=== PATIENT | male | born 1930 | race Caucasian/White ===

== ENCOUNTER 2018-03-01 18:25 | Inpatient (IN) | payer MEDICARE ==
[2018-03-01 22:02] LABS: Troponin I Less than 0.010 ng/mL (< 0.028)
[2018-03-01 23:10] VITALS: BMI 30.2
--- NOTE | 2018-03-01 23:19 | CON ---
DATE OF CONSULTATION: 03/01/2018 HISTORY OF PRESENT ILLNESS: Mr. Johnson is an 87-year-old man who presented to the emergency [facility] via transfer from [facility] Emergency Department after CT scan of the brain revealed a right cerebral convexity, subdural hematoma that appears to be subacute in nature and has heterogen ous signal. He does not take any blood thinners. He initially went to the emergency department if h e has significant right hip and lower extremity pain looks to be in an L4 fashion, but he describes a n intermittent numbness over the last 8 days that has more poly dermatomal than anything else. His s on corroborates the story, the likely causation of his subdural is a fall apparently over the last 8 days, since being intermittent numbness began, he has had 5 or 6 separate falls likely one of which, where he struck his head in the bathroom, falling while trying to get up off the toilet. PHYSICAL EXAMINATION: HEENT: His head is atraumatic, normocephalic. Pupils are equal, round, and reactive to light. NEUROLOGIC: Cranial nerves are all intact. His speech is clear and coherent. EXTREMITIES: Upper and lower extremity motor exam is normal. He no longer has any paresthesia in th e right lower extremity nor does he in any other extremity, though none of others have given him any problem over the course of his numbness and pain. From a neurosurgical standpoint, this could represent a surgical situation. I do not think that his right leg has anything to do with the hemorrhage, given its laterality being contralateral. I discus sed with them that because he has a nonfocal neurologic examination and overall appears to be doing w ell and the fact that this is a subacute bleed. This likely does not need represent situation that b ecomes operative. Thorough understanding of this and we are elected to proceed on the surgery anyway . Our recommendation would be to admit to the hospitalist service on the stroke unit where we can pe rform q.2 hour neuro checks, keep his head off bed elevated, watch his systolic pressures to keep und er 160. Tomorrow, I would like to have him meet with MD and evaluated by the physical therapy and oc cupational therapy teams for possible inpatient rehabilitation admission. We will also consult case management for this purpose. We will need to hold any blood thinning medications including NSAIDs. We will repeat a CT scan in the morning around 0500. I discussed with the patient and family at beds [place], they are expressed understanding and I will see them in the morning.
[2018-03-02 01:29] LABS: Troponin I Less than 0.010 ng/mL (< 0.028)
[2018-03-02] MEDS ORDERED: Nitroglycerin 0.4 MG TAB (25 Tab Bottle) PO PRN (02:10)
[2018-03-02] MEDS ORDERED: Calcium Carbonate 500 MG ChewTAB PO PRN (02:10)
[2018-03-02] MEDS ORDERED: Ondansetron HCl/PF 4 MG/2 ML Vial IVP PRN (02:10)
[2018-03-02] MEDS ORDERED: Ondansetron ODT 4 MG TAB PO PRN (02:10)
[2018-03-02] MEDS ORDERED: Acetaminophen 325 MG TAB PO PRN (02:10)
[2018-03-02] MEDS ORDERED: Bisacodyl 10 MG SUPP PR PRN (02:10)
[2018-03-02] MEDS ORDERED: Senokot 8.6 MG TAB PO PRN (02:10)
--- NOTE | 2018-03-02 02:10 | PDOC.EVN ---
Event Note - Event Note Event Note: Patient seen and examined on 03/01/18. No Antiplatelet due to SDH
[2018-03-02] MEDS ORDERED: Sodium Chloride 0.9% 1,000 ML IV SCH (02:15)
[2018-03-02] MEDS ORDERED: hydrALAZINE 20 MG/ML VIAL SLOW IVP PRN (02:34)
--- NOTE | 2018-03-02 03:02 | HP ---
DATE OF ADMISSION: 03/01/2018 PRIMARY CARE PHYSICIAN: Darell Mendez M.D. CHIEF COMPLAINT: Right lower extremity weakness. HISTORY OF PRESENT ILLNESS: Patient is an 87-year-old male with coronary artery disease, hypertensio n, and hyperlipidemia who presented to the emergency room at [facility] with above compl aints. The patient currently lives at home with his son who is at the bedside. Last month, he was found to have right lower extremity weakness. A CT scan of the brain done as outpatient was negative for acut e findings except for chronic small vessel disease. Carotid Doppler was negative. Echocardiogram sh owed left ventricular ejection fraction of 55% to 60% with severe mitral regurgitation and mild tricu spid regurgitation. His aspirin dose was increased from 81 to 325 mg daily. Home health care was a rranged. The patient had an unwitnessed fall 2 days ago. It is unclear if he had significant injuries. The [facility] noted his right lower extremity more weaker than his baseline. The [facility] recommended the patient to go to the emergency room for evaluation. The patient was seen at [facility]. PAST MEDICAL HISTORY: 1. Coronary artery disease. 2. Hypertension. 3. Hyperlipidemia. 4. Degenerative joint disease. 5. Rheumatoid arthritis. 6. History of myocardial infarction. 7. Ischemic cardiomyopathy. PAST SURGICAL HISTORY: 1. Colonoscopy in 1995. 2. EGD and colonoscopy in 1998. ALLERGIES: Patient is allergic PENICILLIN, SULFA, ZOCOR that causes nausea and CELEBREX that causes rash. He is also unable to tolerate LISINOPRIL, HYDROCHLOROTHIAZIDE. CURRENT HOME MEDICATIONS: Per [facility], aspirin 325 mg daily, carvedilol 25 mg twice a day, pravasta tin 20 mg at bedtime, tramadol as needed, levothyroxine 50 mcg daily, sublingual nitroglycerin patch 0.2 mcg daily, vitamin D3 daily. SOCIAL HISTORY: Patient currently lives at home. He is . The son, Skinny at the bedside is th e DPOA. He is FULL CODE. No current use of smoking, alcohol or drug use. He currently has home hea lthcare. He ambulates with the help of a walker. FAMILY HISTORY: Father of [place]. Mother with stroke. Heart disease runs in his family. REVIEW OF SYSTEMS: The following complete review of systems was negative, unless otherwise mentioned in the HPI or below: Constitutional: Weight loss or gain, ability to conduct usual activities. Skin: Rash, itching. Eyes: Double vision, pain. ENT/Mouth: Nose bleeding, neck stiffness, pain, tenderness. Cardiovascular: Palpitations, dyspnea on exertion, orthopnea. Respiratory: Shortness of breath, wheezing, cough, hemoptysis, fever or night sweats. Gastrointestinal: Poor appetite, abdominal pain, heartburn, nausea, vomiting, constipation, or diarr hea. Genitourinary: Urgency, frequency, dysuria, nocturia. Musculoskeletal: Pain, swelling. Neurologic/Psychiatric: Anxiety, depression. Allergy/Immunologic: Skin rash, bleeding tendency. PHYSICAL EXAMINATION: VITAL SIGNS: The patient was afebrile with respiration 18, pulse rate of 58, blood pressure 141/68 w ith O2 saturation 96% on room air. GENERAL: An 87-year-old male in no apparent distress. HEENT: Head atraumatic, normocephalic. Sclerae are anicteric. Moist mucous membranes. No oral les ion. NECK: Supple, no JVD appreciated. No carotid bruit. LUNGS: Clear to auscultation bilaterally, no wheezing, rales or rhonchi. HEART: S1, S2 present. Regular rate and rhythm, 3/6 systolic murmur over the mitral area. No heav es or pulsation. ABDOMEN: Soft, nontender, bowel sounds present. EXTREMITIES: No edema or calf tenderness. NEUROLOGIC: Grossly nonfocal except for 4/5 strength in the right lower extremity. Cranial nerves I I-XII normal on examination. Sensation to touch was normal bilaterally. PSYCHIATRIC: Patient is alert, awake, oriented x3. SKIN: Warm and dry. LYMPH NODES: No palpable lymph nodes in the neck. PERIPHERAL VASCULAR: Radial pulses palpable bilaterally. MUSCULOSKELETAL: No joint swelling or tenderness. LABORATORY FINDINGS: 1. CBC showed WBC 5.3 with hemoglobin 13.2, hematocrit 41.9, platelet of 95. PT, INR, PTT normal ra nge. Chemistries showed sodium 141, potassium 4.3, chloride 109, bicarbonate 23, BUN 24, creatinine 1.22. 2. CT scan of the brain at [place] by my review was consistent with moderate size right subdural esdras rashaad. 3. Pelvic and hip x-rays were negative for acute fractures or dislocation. EKG by my review showed sinus bradycardia with nonspecific intraventricular block. He had some bigem inies on the tele monitor. IMPRESSION: 1. Suspected acute/subacute accident. 2. New subdural hematoma, probably secondary to fall. 3. Suspected cardiogenic syncope. 4. Chronic kidney disease stage 2 with mild worsening of creatinine. 5. Hypothyroidism. 6. Hypertension. 7. Hyperlipidemia. 8. Coronary artery disease. 9. Degenerative joint disease. 10. Severe mitral regurgitation. 11. Chronic thrombocytopenia. 12. Obesity with a BMI at 30.2. PLAN: The patient will be monitored in the stroke unit. MRI of the brain will be obtained. We will also consult Cardiology for suspected cardiogenic syncope. We will continue current home medication s including carvedilol with holding parameters. Physical therapy, occupational therapy. Neurosurger y has already evaluated the patient. A repeat CT scan of the brain will be obtained. We will hold aspirin. Fall precautions. We will continue neuro checks. We will keep the systolic b lood pressure under 160. Plan of care was discussed with the patient and the family at the bedside. They stated understanding . The patient will require 2 to 3 days for stabilization.
[2018-03-02 03:54] LABS: Albumin 3.2 g/dL (3.4-4.8); Anion Gap 8 mmol/L (10-20); BUN (Urea Nitrogen) 29 mg/dL (8.4-25.7); Calc. Creatinine Clearance 52 mL/min (70-130); Calcium 8.7 mg/dL (7.8-10.44); Carbon Dioxide 27 mmol/L (23-31); Cardiac Risk 4.8 (Less than 4.5); Chloride 110 mmol/L (98-107); Cholesterol 173 mg/dl (< 200 Desired); Estimated GFR-MDRD 55; Glucose 100 mg/dL (83-110); HDL Cholesterol 36 mg/dL (>60 Neg Risk); LDL Cholesterol, Calculated 119 mg/dL; Magnesium 2.1 mg/dL (1.6-2.6); Phosphorus 3.1 mg/dL (2.3-4.7); Potassium 4.1 mmol/L (3.5-5.1); Sodium 141 mmol/L (136-145); Triglycerides 90 mg/dL (Less than 150)
[2018-03-02 03:58] LABS: Troponin I Less than 0.010 ng/mL (< 0.028)
[2018-03-02] MEDS: traMADol HCl 50 MG TAB PO SCH ×2 (05:34→12:38)
[2018-03-02] MEDS: Levothyroxine Sodium 50 MCG TAB PO SCH (05:34)
[2018-03-02] MEDS ORDERED: Carvedilol 6.25 MG TAB PO SCH (08:00)
[2018-03-02] MEDS: Docusate 100 MG CAP PO SCH ×2 (08:41→21:54)
[2018-03-02] MEDS: Famotidine 20 MG TAB PO SCH ×2 (08:42→21:54)
--- NOTE | 2018-03-02 11:17 | CT ---
PRELIMINARY REPORT/[facility]/EMERGENTY AFTER-HOURS PROCEDURE Addendum created by Shamir Zimmerman MD on 03/02/2018 4:41 AM Central Time ([place] & [place]) Findings discussed with Yadira CALLAHAN RN at time of interpretation. Initial Report created on 03/02/2018 4:35 AM Central Time ([place] & [place]) CT Head Without Intravenous Contrast CLINICAL HISTORY: 87 years old, male; Signs and symptoms and condition or disease; Other: Subacute subdural hematoma; W eakness, extremity; Right; Patient HX: Follow up subacute subdural hematoma TECHNIQUE: Axial computed tomography images of the head/brain without intravenous contrast. COMPARISON: No relevant prior studies available. 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 No significant white matter disease. No acute hemorrhage. Midline shift: No midline shift. Ventricles: Unremarkable. No ventriculomegaly. Bones/joints: Unremarkable. No acute fracture. Soft tissues: Unremarkable. Sinuses: Unremarkable as visualized. No acute sinusitis. Mastoid air cells: Unremarkable as visualized. No mastoid effusion. Other findings: Generalized volume loss. 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 Thank you for allowing us to participate in the care of your patient. Dictated and Authenticated by: Shamir Zimmerman MD 03/02/2018 4:35 AM Central Time ([place] & [place]) FINAL REPORT CT HEAD NONCONTRAST PERFORMED ON EMERGENCY BASIS: Date: 03/02/18 Time: 0424 hours HISTORY: Subdural hematoma. Follow-up. COMPARISON: 03/01/18. FINDINGS: Findings agree with the preliminary report by [facility]. The right hypodense subdural fluid collection is unchanged in appearance from the previous exam. No new abnormalities are demonstrated. POS: SJ
--- NOTE | 2018-03-02 12:24 | MRI ---
MRI BRAIN NONCONTRAST: DATE: 03/02/18 TIME: 1039 HOURS HISTORY: 87-year-old male with acute stroke and acute right subdural hematoma. COMPARISON: No prior MRIs. FINDINGS: There is a right frontotemporoparietal subdural fluid collection which is mildly hyperintense relativ e to johnson matter on FLAIR, intermediate in signal intensity between that of brain parenchyma and CSF on T1 WI, and is T2 hyperintense, similar to CSF. At the mid level of the lateral ventricles, the fro ntal component of the subdural hematoma measures approximately 0.9 cm in transverse thickness. It cau ses mild mass effect upon the right cerebral hemisphere, but there is accommodation due to the diffus e chronic brain parenchymal volume loss. There is no midline shift. Ventricles are normal in size and configuration. There is a small focus of magnetic susceptibility blooming artifact in the right fron lior lobe parenchyma consistent with a tiny focus of remote hemorrhage, a few millimeters in size. No acute intra-axial hemorrhage. There is a sagittally oriented strip of T2 hyperintense signal, which corresponds to a region of low attenuation seen on prior brain CT of 02/11/18, consistent with small old white matter infarction in the left centrum semiovale. However, this area currently has restricted diffusion. This sagittally or iented strip of restricted diffusion follows the left paramedian centrum semiovale, then extends into the left lateral genu of corpus callosum abutting the frontal horn of the left lateral ventricle, co nsistent with an acute or subacute infarction. IMPRESSION: 1. Small to moderate size right supratentorial subdural hematoma, probably subacute, with mild mass effect upon the right cerebral hemisphere. 2. Acute or subacute infarction in branch territory of left anterior cerebral artery. CODE TFernandez Nichols POS: SEVERIANO
--- NOTE | 2018-03-02 12:43 | PRG ---
DATE OF SERVICE: 03/02/2018 SUBJECTIVE: Mr. Johnson was admitted last night for right lower extremity intermittent weakness, right cerebral convexity subdural hematoma of subacute nature, as well as possible TIA versus stroke. Thi s morning, he was comfortable. He denies any new complaints. His right lower extremity strength to me seems stable. His son in the room feels like maybe it is a little bit worse and was last night in the ER, but we will let physical therapy and occupational therapy work with him today to determine s ome more thorough assessment. Rehab is probably the best course of action here, although the patient is very anxious to get home. We will continue to follow.
--- NOTE | 2018-03-02 13:21 | PDOC.PN ---
- Subjective Encounter Start Date: 03/02/18 Encounter Start Time: 07:00 Pt seen for followup re: CVA. Reports RUE weakness. Denies chest pain, shortness of breath, fevers or chills. - Objective Resuscitation Status: Resuscitation Status FULL:Full Resuscitation MAR Reviewed: Yes Vital Signs & Weight: Vital Signs (12 hours) Temp Pulse Resp BP BP BP BP 03/02/18 11:41 97.9 F 53 L 18 126/65 03/02/18 08:41 154/73 H 03/02/18 08:35 98.7 F 50 L 18 154/73 H 03/02/18 04:00 97.6 F 57 L 16 161/76 H 172/76 H 150/70 H Pulse Ox 03/02/18 11:41 94 L 03/02/18 08:41 03/02/18 08:35 95 03/02/18 04:00 96 Weight Weight 192 lb 9.6 oz I&O: 03/01/18 03/02/18 03/03/18 06:59 06:59 06:59 Intake Total 680 Balance 680 Result Diagrams: 03/02/18 03:21 EKG Reviewed by me: Yes (Tele: sinus bradycardia) Phys Exam - Physical Examination Obese HEENT: PERRLA, moist MMs, sclera anicteric, oral pharynx no lesions Neck: no nodes, no JVD, supple, full ROM Respiratory: no wheezing, no rales, no rhonchi, clear to auscultation bilateral Cardiovascular: RRR, no rub Gastrointestinal: soft, non-tender, no distention, positive bowel sounds Musculoskeletal: pulses present Neurological: moves all 4 limbs power 4/5 RLE, 5/5 other three extremities Psychiatric: normal affect Skin: no rash Dx/Plan (1) Ischemic cerebrovascular accident (CVA) Code(s): I63.9 - CEREBRAL INFARCTION, UNSPECIFIED Status: Acute Comment: No aspirin at this time due to intracranial bleed, continue statin (2) Intracranial bleed Code(s): I62.9 - NONTRAUMATIC INTRACRANIAL HEMORRHAGE, UNSPECIFIED Status: Acute Comment: neurosurgery following, no plans for surgery (3) Bradycardia Code(s): R00.1 - BRADYCARDIA, UNSPECIFIED Status: Acute Comment: Hold beta romana. HR dipped into 40s earlier (4) Fall Code(s): W19.XXXA - UNSPECIFIED FALL, INITIAL ENCOUNTER Status: Acute Comment: Fall 2 days prior to admission, unwitnessed. Unclear whether bradycardia may have played a role. (5) HTN (hypertension) Code(s): I10 - ESSENTIAL (PRIMARY) HYPERTENSION Status: Chronic Comment: Monitor vital signs, titrate antihypertensives as needed. PRN IV hydralazine for blood pressure spikes, beta romana on hold (6) Dyslipidemia Code(s): E78.5 - HYPERLIPIDEMIA, UNSPECIFIED Status: Chronic Comment: continue statin (7) Ischemic cardiomyopathy Code(s): I25.5 - ISCHEMIC CARDIOMYOPATHY Status: Chronic Comment: stable - Plan PT/OT, out of bed/ambulate * . Review of Systems - Review of Systems Constitutional: weakness. negative: fever, chills, sweats, malaise Respiratory: negative: Cough, Dry, Shortness of Breath, Hemoptysis, SOB with Excertion, Pleuritic Pain, Sputum, Wheezing Cardiovascular: negative: chest pain, palpitations, orthopnea, paroxysmal nocturnal dyspnea, edema, light headedness Gastrointestinal: negative: Nausea, Vomiting, Abdominal Pain, Diarrhea, Constipation, Melena, Hematochezia Neurological: Weakness. negative: Numbness, Incoordination, Change in Speech, Confusion, Seizures - Medications/Allergies Allergies/Adverse Reactions: Allergies Allergy/AdvReac Type Severity Reaction Status Date / Time Penicillins Allergy Verified 03/02/18 00:36 Sulfa (Sulfonamide Allergy Verified 03/02/18 00:36 Antibiotics) Medications: Current Medications Acetaminophen (Tylenol) 650 mg PO Q4H PRN PRN Reason: Headache/Fever or Pain Bisacodyl (Dulcolax) 10 mg ID Q24H PRN PRN Reason: Constipation Calcium Carbonate (Tums) 1,000 mg PO Q4H PRN PRN Reason: Heartburn or Indigestion Carvedilol (Coreg) 12.5 mg PO BID-[facility] Last Admin: 03/02/18 08:41 Dose: 12.5 mg Docusate Sodium (Colace) 100 mg PO BID [facility] Last Admin: 03/02/18 08:41 Dose: 100 mg Famotidine (Pepcid) 20 mg PO BID [facility] Last Admin: 03/02/18 08:42 Dose: 20 mg Hydralazine HCl (Apresoline) 10 mg SLOW IVP Q4H PRN PRN Reason: SBP Greater Than 180 Sodium Chloride (Normal Saline 0.9%) 1,000 mls @ 50 mls/hr IV .Q20H [facility] Stop: 03/02/18 22:16 Last Admin: 03/02/18 03:06 Dose: 1,000 mls Levothyroxine Sodium (Synthroid) 50 mcg PO 0600 [facility] Last Admin: 03/02/18 05:34 Dose: 50 mcg Nitroglycerin (Nitrostat) 0.4 mg PO Q5MIN PRN PRN Reason: Chest Pain Ondansetron HCl (Zofran Odt) 4 mg PO Q6H PRN PRN Reason: Nausea/Vomiting Ondansetron HCl (Zofran) 4 mg IVP Q6H PRN PRN Reason: Nausea/Vomiting Pravastatin Sodium (Pravachol) 20 mg PO HS [facility] Senna (Senokot) 2 tab PO HSPRN PRN PRN Reason: Constipation Sodium Chloride (Flush - Normal Saline) 10 ml IVF PRN PRN PRN Reason: Saline Flush Tramadol HCl (Ultram) 50 mg PO Q6HR [facility] Last Admin: 03/02/18 12:38 Dose: 50 mg
--- NOTE | 2018-03-02 14:15 | PRG ---
DATE OF SERVICE: 03/02/2018 SUBJECTIVE: Mr. Johnson was admitted for a series of falls and complains of intermittent weakness in h is right lower extremity, most weakness as well as numbness in the right lower extremity. He had a h ead CT, which revealed the presence of a subacute chronic subdural hematoma over the right cerebral c onvexity. He was admitted for observation management and disposition planning. I do not believe his lower extremity weakness related to the subdural hematoma, nor do I believe he h as had a stroke, so therefore I do not believe he needs to continue down the stroke protocol. I margarita addie the subdural hematoma on the right is asymptomatic. He may very well have associated spine degen erative disease, which relates to his lower extremity discomfort and this can be evaluated in outpati ent setting. I believe we should work quickly towards disposition planning. Neurosurgical Service w ill sign off.
[2018-03-02] MEDS ORDERED: traMADol HCl 50 MG TAB PO PRN (16:32)
[2018-03-02] MEDS: Pravastatin Sodium 20 MG TAB PO SCH (21:55)
[2018-03-03] MEDS: Levothyroxine Sodium 50 MCG TAB PO SCH (05:22)
[2018-03-03 05:50] LABS: Albumin 3.3 g/dL (3.4-4.8); Anion Gap 5 mmol/L (10-20); BUN (Urea Nitrogen) 18 mg/dL (8.4-25.7); BUN/Creatinine Ratio 17.65; Calc. Creatinine Clearance 64 mL/min (70-130); Calcium 8.7 mg/dL (7.8-10.44); Carbon Dioxide 32 mmol/L (23-31); Chloride 105 mmol/L (98-107); Estimated GFR-MDRD 69; Glucose 100 mg/dL (83-110); Potassium 4.3 mmol/L (3.5-5.1); Sodium 138 mmol/L (136-145)
[2018-03-03 06:25] LABS: #Eosinphils 0.3 thou/uL (0.0-0.7); #Monocytes 0.5 thou/uL (0.11-0.59); #Neutrophils 2.9 thou/uL (1.40-6.50); %Basophils 0.4 % (0.0-1.0); %Eosinophils 5.3 % (0.0-10.0); %Lymphocytes 21.6 % (21.0-51.0); %Monocytes 11.4 % (0.0-10.0); %Neutrophils 61.3 % (42.0-75.0); Hemoglobin 12.9 g/dL (14.0-18.0); MDiff Complete? YES; Macrocytosis SLIGHT = 6-15 cells (100X) (0-5/hpf); Mean Corpuscular HGB CONC 31.9 g/dL (32.0-36.0); Mean Corpuscular Volume 94.2 fl (80.0-94.0); Mean Platelet Volume 9.8 fL (7.4-10.4); PLT Morphology Comment Appears Decreased; Platelet Count 82 thou/uL (130-400); RBC Distribution Width 13.2 % (11.5-14.5); Red Blood Cell (RBC) Count 4.31 mill/uL (4.70-6.10); White Blood Cell (WBC) Count 4.8 thou/uL (4.8-10.8)
[2018-03-03] MEDS: Famotidine 20 MG TAB PO SCH ×2 (08:08→20:47)
[2018-03-03] MEDS: Docusate 100 MG CAP PO SCH ×2 (08:08→20:47)
--- NOTE | 2018-03-03 12:29 | PDOC.CTH ---
<Juliet Rosenberg - Last Filed: 03/03/18 12:28> Cardiology Progress Note - Subjective The pt seen and examined. No overnight events. No cardiac complaints. His BP was elevated when he got up for exercise with PTs. He denied dizziness or lightheadedness when he got up with PT. - Objective Vital Signs Temp Pulse Resp BP BP BP BP 03/03/18 12:20 67 03/03/18 11:59 97.6 F 52 L 18 198/93 H 194/70 H 161/86 H 03/03/18 08:08 97.6 F 52 L 20 03/03/18 07:39 97.6 F 52 L 20 185/73 H 03/03/18 04:00 97.3 F L 54 L 20 178/79 H 03/03/18 02:10 Pulse Ox 03/03/18 12:20 03/03/18 11:59 98 03/03/18 08:08 95 03/03/18 07:39 95 03/03/18 04:00 95 03/03/18 02:10 97 Weight 192 lb 9.6 oz 03/02/18 03/03/18 03/04/18 06:59 06:59 06:59 Intake Total 820 Output Total 310 Balance 510 - Physical Examination General/Neuro: alert & oriented x3 Neck: no JVD present Lungs: CTA Heart: RRR Abdomen: soft Extremities: other: (No edema) - Telemetry Telemetry Rhythm: SR 50s - Labs Result Diagrams: 03/03/18 05:25 03/03/18 05:25 Troponin/CKMB Troponin I Less than 0.010 ng/mL (< 0.028) 03/02/18 03:21 - Assessment/Plan 1. Syncopal episode - HR has been 50s; Coreg is on hold at this moment. Cont. to monitor 2. Rt Subdural hematoma - Per neurology service, no surgery; possible outpt follow up for spine degenerative disease 3. Hx of multiple falls - 4. HTN - Start Lisinopril 5mg BID from today; cont. to monitor 5. dyslipidemia - on Statin 6. severe MR - Echo on 02/20/18 showed EF 55-60% with servere MR. The pt is asymptomatic; cont. to monitor MAR reviewed Review of Systems - Review of Systems Constitutional: reports: no symptoms reported EENTM: reports: no symptoms reported Respiratory: reports: no symptoms reported Cardiac (ROS): reports: no symptoms reported ABD/GI: reports: no symptoms reported : reports: no symptoms reported <Storm William - Last Filed: 03/03/18 15:19> Cardiology Progress Note - Objective Vital Signs Temp Pulse Resp BP BP BP BP 03/03/18 13:44 03/03/18 12:38 56 L 172/74 H 03/03/18 12:28 53 L 166/79 H 03/03/18 12:20 67 03/03/18 12:15 212/106 H 03/03/18 11:59 97.6 F 52 L 18 198/93 H 194/70 H 03/03/18 08:08 97.6 F 52 L 20 03/03/18 07:39 97.6 F 52 L 20 03/03/18 04:00 97.3 F L 54 L 20 178/79 H BP Pulse Ox 03/03/18 13:44 139/57 L 03/03/18 12:38 03/03/18 12:28 03/03/18 12:20 03/03/18 12:15 03/03/18 11:59 161/86 H 98 03/03/18 08:08 95 03/03/18 07:39 185/73 H 95 03/03/18 04:00 95 Weight 192 lb 9.6 oz 03/02/18 03/03/18 03/04/18 06:59 06:59 06:59 Intake Total 820 Output Total 310 Balance 510 - Labs Result Diagrams: 03/03/18 05:25 03/03/18 05:25 Troponin/CKMB Troponin I Less than 0.010 ng/mL (< 0.028) 03/02/18 03:21 - Assessment/Plan Pt. seen and eval. by me. I agree with the A/P by the BNP. Chest clear. regular rhythm. Monitor. May eventually need a pacemaker. Would advise an event monitor for 2-4 weeks. The pt. says that he does not feel that he passed out.
[2018-03-03] MEDS ORDERED: Lisinopril 5 MG TAB PO SCH ×2 (12:30→14:00)
--- NOTE | 2018-03-03 16:55 | PDOC.PN ---
- Subjective Encounter Start Date: 03/03/18 Encounter Start Time: 11:00 Pt seen for followup re: ischemic CVA. Denies chest pain, shortness of breath, fevers or chills. RLE weakness improving. - Objective Resuscitation Status: Resuscitation Status FULL:Full Resuscitation MAR Reviewed: Yes Vital Signs & Weight: Vital Signs (12 hours) Temp Pulse Pulse Resp BP BP BP 03/03/18 15:17 98.1 F 55 L 16 03/03/18 13:44 03/03/18 12:38 56 L 172/74 H 03/03/18 12:28 53 L 166/79 H 03/03/18 12:20 67 03/03/18 12:15 67 212/106 H 03/03/18 11:59 97.6 F 52 L 18 03/03/18 08:08 97.6 F 52 L 20 03/03/18 07:39 97.6 F 52 L 20 BP BP BP Pulse Ox 03/03/18 15:17 156/64 H 96 03/03/18 13:44 139/57 L 03/03/18 12:38 03/03/18 12:28 03/03/18 12:20 03/03/18 12:15 212/106 H 03/03/18 11:59 198/93 H 194/70 H 161/86 H 98 03/03/18 08:08 95 03/03/18 07:39 185/73 H 95 Weight Weight 192 lb 9.6 oz I&O: 03/02/18 03/03/18 03/04/18 06:59 06:59 06:59 Intake Total 820 Output Total 310 Balance 510 Result Diagrams: 03/03/18 05:25 03/03/18 05:25 EKG Reviewed by me: Yes (Tele: NSR) Phys Exam - Physical Examination Obese HEENT: moist MMs Neck: supple Respiratory: clear to auscultation bilateral Cardiovascular: RRR Gastrointestinal: soft Neurological: normal sensation, moves all 4 limbs Power 4+/5 RLE, 5/5 other three extremities Psychiatric: normal affect Skin: no rash Dx/Plan (1) Ischemic cerebrovascular accident (CVA) Code(s): I63.9 - CEREBRAL INFARCTION, UNSPECIFIED Status: Acute Comment: No aspirin at this time due to intracranial bleed, continue statin. Discussed with neurosurgery service. They do not recommend aspirin until CT scan shows resolution of the bleed. (2) Intracranial bleed Code(s): I62.9 - NONTRAUMATIC INTRACRANIAL HEMORRHAGE, UNSPECIFIED Status: Acute Comment: neurosurgery following (3) Bradycardia Code(s): R00.1 - BRADYCARDIA, UNSPECIFIED Status: Acute Comment: Beta romana on hold. Appreciate cardiology service input. (4) Fall Code(s): W19.XXXA - UNSPECIFIED FALL, INITIAL ENCOUNTER Status: Acute Comment: appreciate Rehab services input. (5) HTN (hypertension) Code(s): I10 - ESSENTIAL (PRIMARY) HYPERTENSION Status: Chronic Comment: Pt has been started on lisinopril. Continue to monitor vital signs. (6) Dyslipidemia Code(s): E78.5 - HYPERLIPIDEMIA, UNSPECIFIED Status: Chronic Comment: continue statin (7) Ischemic cardiomyopathy Code(s): I25.5 - ISCHEMIC CARDIOMYOPATHY Status: Chronic Comment: stable - Plan * . Review of Systems - Review of Systems Constitutional: weakness Respiratory: negative: Cough, Dry, Shortness of Breath, Hemoptysis, SOB with Excertion, Pleuritic Pain, Sputum, Wheezing Cardiovascular: negative: chest pain, palpitations, orthopnea, paroxysmal nocturnal dyspnea, edema, light headedness Neurological: Weakness - Medications/Allergies Allergies/Adverse Reactions: Allergies Allergy/AdvReac Type Severity Reaction Status Date / Time Penicillins Allergy Verified 03/02/18 00:36 Sulfa (Sulfonamide Allergy Verified 03/02/18 00:36 Antibiotics) Medications: Current Medications Acetaminophen (Tylenol) 650 mg PO Q4H PRN PRN Reason: Headache/Fever or Pain Bisacodyl (Dulcolax) 10 mg NC Q24H PRN PRN Reason: Constipation Calcium Carbonate (Tums) 1,000 mg PO Q4H PRN PRN Reason: Heartburn or Indigestion Docusate Sodium (Colace) 100 mg PO BID [facility] Last Admin: 03/03/18 08:08 Dose: 100 mg Famotidine (Pepcid) 20 mg PO BID [facility] Last Admin: 03/03/18 08:08 Dose: 20 mg Hydralazine HCl (Apresoline) 10 mg SLOW IVP Q4H PRN PRN Reason: SBP Greater Than 180 Last Admin: 03/03/18 12:20 Dose: 10 mg Levothyroxine Sodium (Synthroid) 50 mcg PO 0600 [facility] Last Admin: 03/03/18 05:22 Dose: 50 mcg Lisinopril (Zestril) 5 mg PO BID [facility] Nitroglycerin (Nitrostat) 0.4 mg PO Q5MIN PRN PRN Reason: Chest Pain Ondansetron HCl (Zofran Odt) 4 mg PO Q6H PRN PRN Reason: Nausea/Vomiting Ondansetron HCl (Zofran) 4 mg IVP Q6H PRN PRN Reason: Nausea/Vomiting Pravastatin Sodium (Pravachol) 20 mg PO HS [facility] Last Admin: 03/02/18 21:55 Dose: 20 mg Senna (Senokot) 2 tab PO HSPRN PRN PRN Reason: Constipation Sodium Chloride (Flush - Normal Saline) 10 ml IVF PRN PRN PRN Reason: Saline Flush Sodium Chloride (Flush - Normal Saline) 10 ml IVF Q12HR [facility] Last Admin: 03/03/18 08:08 Dose: 10 ml Tramadol HCl (Ultram) 50 mg PO Q6H PRN PRN Reason: PAIN>3
--- NOTE | 2018-03-03 17:45 | CON ---
DATE OF CONSULTATION: 03/03/2018 CONSULTING PHYSICIAN: Hospitalist Service. IMPRESSION: 1. Left anterior cerebral artery infarct with transient right leg weakness. 2. Hypertension. 3. Aspirin failure. 4. Small subdural hematoma without recent history of any trauma. PLAN: 1. Add Plavix 75 mg per day. 2. Carotid ultrasound. HISTORY OF PRESENT ILLNESS: Mr. Johnson is an 87-year-old gentleman with a past history of hypertensio n. He recently was seen by Dr. Mendez for complaints of left facial numbness near the nasolabial fo ld. He was given some type of medication, which he could not tolerate. He then noted some transient numbness in the right lower extremity. He did not have any significant trouble walking, despite thi s, he most recently started having some pain in his right hip and knee and decided to come to the [facility] for evaluation. He had an MRI of the brain done, which showed evidence of a subacute infarct i n the left anterior cerebral artery territory as well as a small to moderate subdural hematoma, proba shannan subacute in nature with mild mass effect on the right cerebral hemisphere. He reports that he melgar s had past carotid ultrasounds, which were unremarkable. He has a history of a myocardial infarction , but no recent history of other cardiac issues. He was taking aspirin on a daily basis as well as a statin. PAST MEDICAL HISTORY: As listed above. ALLERGIES: PENICILLIN, SULFA. SOCIAL HISTORY: No tobacco or alcohol use. FAMILY HISTORY: Noncontributory. MEDICATION LIST: Reviewed. REVIEW OF SYSTEMS: Complaint of headache, nausea, dizziness, transient loss of consciousness, trauma , weakness of the extremities, loss of bowel or bladder control. PHYSICAL EXAMINATION: GENERAL: He is a well-nourished elderly man in no distress. VITAL SIGNS: Blood pressure 185/73, pulse 52, respirations 20, and temperature 97.6. HEENT: Pupils equal. Conjunctivae clear. Oropharynx clear. NECK: Supple. EXTREMITIES: No cyanosis, clubbing or edema. NEUROLOGIC: Alert and cooperative. Speech is fluent and clear. Cranial nerves were intact. Motor exam showed symmetric strength. Sensation was intact to light touch bilaterally. Plantar responses were upgoing on the right and downgoing on the left and no tremor or dysmetria was present. LABORATORY STUDIES: Unremarkable CBC and chemistry panel. Cholesterol was 173 with a ratio 4.8. SUMMARY: Elderly man with asymptomatic subdural hematoma and a subacute infarct in the left anterior cerebral artery distribution despite aspirin. He would seem reasonable to add Plavix, could conside r neurosurgical consultation for the subdural hematoma, but given that it is asymptomatic, he can lik josef be just monitored at this point.
[2018-03-03] MEDS: Lisinopril 5 MG TAB PO SCH (20:48)
[2018-03-03] MEDS: Pravastatin Sodium 20 MG TAB PO SCH (20:50)
[2018-03-04] MEDS: Levothyroxine Sodium 50 MCG TAB PO SCH (05:53)
[2018-03-04] MEDS: Lisinopril 5 MG TAB PO SCH (08:54)
[2018-03-04] MEDS: Docusate 100 MG CAP PO SCH (08:54)
[2018-03-04] MEDS: Famotidine 20 MG TAB PO SCH (08:54)
[2018-03-04 11:39] VITALS: BP 150/66; TEMP 97.4
--- NOTE | 2018-03-04 12:18 | PDOC.CTH ---
Cardiology Progress Note - Subjective the pt seen and examined. No overnight events. No cardiac complaints. He walked several times without any cardiac complaints. - Objective Vital Signs Temp Pulse Pulse Pulse Resp BP BP 03/04/18 11:39 97.4 F L 57 L 18 03/04/18 08:54 98.4 F 54 L 18 167/90 H 03/04/18 07:50 57 L 55 L 156/62 H 03/04/18 07:36 98.3 F 54 L 18 03/04/18 03:43 97.5 F L 60 20 03/04/18 00:51 BP BP Pulse Ox 03/04/18 11:39 150/66 H 96 03/04/18 08:54 98 03/04/18 07:50 160/71 H 03/04/18 07:36 167/90 H 98 03/04/18 03:43 178/91 H 98 03/04/18 00:51 96 Weight 192 lb 9.6 oz 03/03/18 03/04/18 03/05/18 06:59 06:59 06:59 Intake Total 820 500 Output Total 310 Balance 510 500 - Physical Examination General/Neuro: alert & oriented x3 Neck: carotid US brisk Lungs: CTA Heart: RRR Abdomen: soft Extremities: other: (No edema) - Telemetry Telemetry Rhythm: SB 50s - Labs Result Diagrams: 03/03/18 05:25 03/03/18 05:25 Troponin/CKMB Troponin I Less than 0.010 ng/mL (< 0.028) 03/02/18 03:21 - Assessment/Plan 1. Syncopal episode - HR has been 50s; Coreg is on hold at this moment. The pt is asymptomatic. Cont. to monitor 2. Rt Subdural hematoma - Per neurology service, no surgery; possible outpt follow up for spine degenerative disease 3. Hx of multiple falls - 4. HTN - Start Lisinopril 5mg BID from today; cont. to monitor 5. dyslipidemia - on Statin 6. severe MR - Echo on 02/20/18 showed EF 55-60% with servere MR. The pt is asymptomatic; cont. to monitor MAR reviewed * From cardiac standpoint, the pt is stable to tx to rehab. 3wk-EVR will be sent to his Rehab facility. Review of Systems - Review of Systems Constitutional: reports: no symptoms reported EENTM: reports: no symptoms reported Respiratory: reports: no symptoms reported Cardiac (ROS): reports: no symptoms reported ABD/GI: reports: no symptoms reported : reports: no symptoms reported Musculoskeletal: reports: no symptoms reported
--- NOTE | 2018-03-04 13:38 | CON ---
DATE OF CONSULTATION: 03/02/2018 INDICATION FOR CONSULTATION: An 87-year-old patient with bradycardia, left bundle branch block and h istory of CVA. HISTORY OF PRESENT ILLNESS: This very pleasant 87-year-old gentleman who has a history of coronary a rtery disease, dyslipidemia and hypertension and now has recently suffered a CVA, also by MRI has a C VA as well as a subdural hematoma, this appears to be chronic. There has been no recent history of f alls. He appears to be relatively active. 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 He recently has been noticing some right l ower extremity weakness. He has had a couple of falls. He has seen his primary care doctor, then he was admitted to the emergency room after he continued to have falls. The leg became weaker. He pre sented to the hospital and was noted to have the above noted findings from the CT and the MRI. PAST MEDICAL HISTORY: At this time, he has no cardiac complaints, but apparently did have some histo ry in the past of myocardial infarction about 25 years ago, said he was treated by [facility], but no intervention was reported at that time. He was told he had perhaps 60% blockag es, but I have no records of that cardiac catheterization. He did have an echocardiogram recently, w [facility] showed an ejection fraction of 55-60% with severe mitral valve regurgitation. PAST MEDICAL HISTORY: Significant for coronary artery disease, hypertension, dyslipidemia, rheumatoi d arthritis, CVA, history of myocardial infarction many years ago, some history of ischemic cardiomyo nora, however, ejection fraction is normal. Also history of rheumatoid arthritis and degenerative j oint disease. He has had a colonoscopy as well as an EGD. He has had nasal surgery for cancer. ALLERGIES: PENICILLIN, SULFUR, and ZOCOR, which causes nausea. He has intolerance to CELEBREX and h e also has problems with lisinopril and hydrochlorothiazide. MEDICATIONS: Prior to admission included aspirin 325 mg a day, Coreg 25 mg b.i.d., pravastatin 20 mg a day, tramadol p.r.n., levothyroxine, sublingual nitroglycerin and vitamin D3. SOCIAL HISTORY: He is . He lives at home. His son is there. He still remains very active. He has no history of alcohol or tobacco abuse recently. He usually walks with a walker. FAMILY HISTORY: Positive for coronary artery disease and CVAs. His mother of CVA. Father had myocardial infarction. REVIEW OF SYSTEMS: According to the son and also to the patient. He has no significant HEENT compla ints. He has no pulmonary complaints such as asthma, emphysema, or bronchitis. He does occasionally get some shortness of breath if he over exerts himself. He had no chest pain. He did not notice an y palpitations. He had no lower extremity edema. He only complains mainly of the lower extremity we akness. PHYSICAL EXAMINATION: GENERAL: Reveals an elderly gentleman in no acute distress. He is alert and oriented at this time. VITAL SIGNS: His blood pressure is 154/73, heart rate is 54. He is afebrile, respiratory rate is 12 . HEENT: Shows head to be normocephalic, atraumatic. Carotid pulses are present. I did not hear any bruits. There is no obvious JVD. CHEST: Clear to auscultation without rales, rhonchi or wheezing. CARDIOVASCULAR: Reveals a regular rhythm. He has a somewhat split second heart sound, which would b e compatible with his bundle-branch block. He had no significant murmurs, heaves, thrills, bruits or rubs. He does have a very soft systolic murmur at the apex, which is actually surprising with his h istory of severe mitral valve regurgitation that he would not have a lot of murmur, but very so ft. He did not have any significant otherwise any ectopy during the exam. ABDOMEN: Shows abdomen to be obese with positive bowel sounds. EXTREMITIES: Showed no clubbing or cyanosis. Pedal pulses are present. NEUROLOGIC: The patient did have some lower extremity weakness in the right lower extremity. Otherw ise, there were no significant abnormalities noted. SKIN: Warm and dry. His EKG shows a sinus rhythm with bundle branch block and occasional ectopy, but otherwise unremarkab le. His laboratory data shows a hemoglobin of 13.2, WBC of 5.3. Potassium is 4.1 with creatinine 1. 25, LDL level was elevated at 119. IMPRESSION: 1. Recent cerebrovascular accident with also what appears to be chronic subdural hematoma of uncerta in duration. He appears to be stable from this and according to the son, the lower extremity is impr oving with more strength. 2. History of coronary artery disease with myocardial infarction many years ago, which we do not hav e any records available. To the extent of his disease, he did undergo stress testing in 2011 in our office by [address]. Brasher and this showed evidence of an inferior myocardial scar, but otherwise was un remarkable. His echocardiogram shows normal ejection fraction. At this time, from cardiac standpoin t, he appears to be relatively stable. I did not see any indication that the patient has any arrhyth mias, but certainly if there is any consideration that he may have more bradycardia, then we can appl y an event monitor to see whether or not he becomes severely bradycardic. I would agree with holding the beta blockers at this time, at least we certainly should be able to decrease the dose in order t o allow the heart rate to increase and since have been stopped. His heart rate actually this evening is in the 60s and he appears to be very stable. We would be more than happy to continue to follow h im over the weekend to see how he does. Otherwise, he may need a pacemaker. 3. Severe mitral valve regurgitation. He appears to be relatively asymptomatic as far as this is co ncerned. 4. History of possible cardiogenic syncope. However, again, we will need to follow him very careful ly we will watch the blood pressure. I do not see an indication that he has actually had any jorge l s yncopal episodes. 5. History of severe mitral valve regurgitation appears to be relatively asymptomatic. We will cont inue to follow this. At his age, it is unlikely he would need to undergo mitral valve repair or repl acement. Otherwise, he appears to be stable with his coronary artery disease. 6. Hypertension. This also is under reasonable control at this time, but slightly on the high side. Once we have stopped the beta blockers, we may need to start another medication such as Norvasc in order to lower the blood pressure should it become elevated.
--- NOTE | 2018-03-04 13:49 | DIS ---
DATE OF ADMISSION: 03/01/2018 DATE OF DISCHARGE: 03/04/2018 PRIMARY CARE PHYSICIAN: Darell Mendez M.D. DISCHARGE DIAGNOSES: 1. Ischemic cerebrovascular accident, acute or subacute, and branch territory of left anterior cereb ral artery. 2. Small to moderate size right-sided subdural hematoma, probably subacute. 3. Bradycardia. CONSULTATIONS DURING THIS HOSPITALIZATION: 1. Neurosurgery, Dr. Anderson. 2. Neurology, Dr. Sun. 3. Cardiology, Dr. William. DISCHARGE MEDICATIONS: He has not been started on aspirin because of intracranial bleed. His discha rge medications include vitamin D3 of 1000 units daily, levothyroxine 50 mcg daily, lisinopril 5 mg 2 times a day, nitroglycerin 0.2 mg patch daily, pravastatin 20 mg at bedtime, tramadol 50 mg every 6 hours as needed. His beta-romana was discontinued. Aspirin was discontinued as well. HOSPITAL COURSE: Mr. Johnson is a pleasant 87-year-old gentleman, who was admitted to [facility] on 03/01/2018 for suspected cerebrovascular accident as well as a right-sided subdu ral hemorrhage. He does have a history of falls. He was seen by Neurosurgery and Neurology Services. MRI of the brain on 03/02/2018 showed a small to moderate size right supratentorial subdural hematoma, probably subacute as well as an acute or subac cabazon infarction and branch territory of left anterior cerebral artery. He could not be started on asp irin because Neurosurgery Service recommended repeating CT scan of head to ensure resolution of the b leed before starting him on aspirin or Plavix. He was evaluated by Rehabilitation Services. He is being discharged to [facility] fo r further management. He was also seen by Cardiology Service for suspected cardiogenic syncope. He was found to be bradyca rdic. His beta-romana was stopped and he has been started on lisinopril. LABORATORY DATA: On 03/03/2018, he had normal sodium, normal potassium, creatinine 1.02, white count 4800, hemoglobin 12.9, and platelet count 82,000. Many thanks for allowing me to participate in your patient's care. Please feel free to contact me wi th any questions or concerns. DISCHARGE DESTINATION: [facility]. TOTAL AMOUNT OF TIME SPENT COORDINATING THIS DISCHARGE: 33 minutes. ADDENDUM: I assessed Mr. Johnson on the day of discharge. He denies any chest pain or shortness of br eath. He reports improvement in his right lower extremity weakness. Vital signs are stable. S1 and S2 are heard, regular. Lungs are clear to auscultation bilaterally.
== END 2018-03-04 15:17 | DRG 64 ==
LOC: ERS 18:25 → 2SE 21:00
PROVIDERS: ADMIT Internal Medicine; ATTEND Internal Medicine
DX: I63.9 Cerebral infarction, unspecified (principal); S06.5X9A Traumatic subdural hemorrhage with loss of consciousness of unspecified duration, initial encounter; D69.6 Thrombocytopenia, unspecified; I34.0 Nonrheumatic mitral (valve) insufficiency; I25.5 Ischemic cardiomyopathy; I25.10 Atherosclerotic heart disease of native coronary artery without angina pectoris; E03.9 Hypothyroidism, unspecified; N18.2 Chronic kidney disease, stage 2 (mild); W19.XXXA Unspecified fall, initial encounter; R55 Syncope and collapse; M19.90 Unspecified osteoarthritis, unspecified site; E66.9 Obesity, unspecified; Z68.32 Body mass index [BMI] 32.0-32.9, adult; I10 Essential (primary) hypertension; R00.1 Bradycardia, unspecified; E78.5 Hyperlipidemia, unspecified; I44.7 Left bundle-branch block, unspecified; M06.9 Rheumatoid arthritis, unspecified; I25.2 Old myocardial infarction; G83.11 Monoplegia of lower limb affecting right dominant side
CPT/HCPCS: 36415; 70450; 70551; 80061; 80069; 83735; 84484; 85025; 93005; 94760; A4216; G8978-GP-CL; G8979-GP-CJ; G8987-GO-CJ; G8988-GO-CH; G9168-GN-CK; G9169-GN-CJ; J0360

== ENCOUNTER 2018-03-25 10:24 | Inpatient (IN) | payer MEDICARE ==
--- NOTE | 2018-03-25 11:59 | CT ---
CT BRAIN WITHOUT CONTRAST: Date: 03/25/18 HISTORY: Altered mental status. FINDINGS: Comparison made with exam of 03/02/18. There is interval development of acute hemorrhage in the chronic right subdural hematoma noted on the previous study. There has been increase in size of the right subdural hematoma with mass effect on t he right cerebral hemisphere and midline shift to the left measuring 12.0 mm. There is also suggestio n of effacement of the perimesencephalic cisterns. No intraparenchymal hemorrhage is seen. The bony c alvarium is intact. IMPRESSION: Acute on chronic right-sided subdural hematoma with subfalcine herniation. Discussed over the telephone with ER physician, Dr. Shade Sandhu, at 1140 hours. CODE CR. POS: SEVERIANO
--- NOTE | 2018-03-25 12:01 | RAD ---
RADIOGRAPH CHEST 1 VIEW: HISTORY: 88-year-old male with altered mental status and generalized weakness. FINDINGS: The thoracic aorta is tortuous and ectatic. There is no evidence of air space density, pneumothorax, or pulmonary edema. The lateral costophrenic angles are sharp. There is high grade DJD at the bila teral glenohumeral joints and AC joints. IMPRESSION: 1. No acute pulmonary findings. 2. 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 lucía [] POS: SEVERIANO
[2018-03-25 12:38] LABS: #Eosinphils 0.1 thou/uL (0.0-0.7); #Lymphocytes 1.2 thou/uL (1.20-3.40); #Monocytes 0.6 thou/uL (0.11-0.59); #Neutrophils 4.8 thou/uL (1.40-6.50); %Basophils 0.2 % (0.0-1.0); %Eosinophils 1.8 % (0.0-10.0); %Lymphocytes 17.7 % (21.0-51.0); %Monocytes 9.1 % (0.0-10.0); %Neutrophils 71.2 % (42.0-75.0); Hemoglobin 14.1 g/dL (14.0-18.0); Mean Corpuscular HGB CONC 33.1 g/dL (32.0-36.0); Mean Corpuscular Hemoglobin 30.5 pg (27.0-31.0); Mean Corpuscular Volume 92.1 fl (80.0-94.0); Mean Platelet Volume 8.8 fL (7.4-10.4); Platelet Count 113 thou/uL (130-400); RBC Distribution Width 12.8 % (11.5-14.5); Red Blood Cell (RBC) Count 4.62 mill/uL (4.70-6.10); White Blood Cell (WBC) Count 6.7 thou/uL (4.8-10.8)
[2018-03-25] MEDS ORDERED: niCARdipine 20MG in NaCl 200 ML BAG IVPB PRN (12:38)
[2018-03-25] MEDS ORDERED: Mag-Al 1200 mg/1200 mg/30 ML UDCUP PO PRN (12:38)
[2018-03-25] MEDS ORDERED: Ondansetron HCl/PF 4 MG/2 ML Vial IVP PRN (12:38)
[2018-03-25] MEDS ORDERED: Milk Of Magnesia 30 ML UDCUP PO PRN (12:38)
[2018-03-25] MEDS ORDERED: Acetaminophen 325 MG TAB PO PRN (12:38)
[2018-03-25] MEDS ORDERED: Sodium Chloride 0.9% 1,000 ML IV SCH (12:45)
[2018-03-25] MEDS ORDERED: Morphine 4 MG/ML VIAL IV PRN (12:54)
[2018-03-25 13:00] LABS: ALT (SGPT) 26 U/L (8-55); AST (SGOT) 36 U/L (5-34); Albumin 3.4 g/dL (3.4-4.8); Alkaline Phosphatase 108 U/L (40-150); Anion Gap 11 mmol/L (10-20); BUN (Urea Nitrogen) 23 mg/dL (8.4-25.7); Bilirubin, Total 0.8 mg/dL (0.2-1.2); CKMB 3.8 ng/mL (0-6.6); Calc. Creatinine Clearance 0 mL/min (70-130); Calcium 8.7 mg/dL (7.8-10.44); Carbon Dioxide 22 mmol/L (23-31); Chloride 110 mmol/L (98-107); Estimated GFR-MDRD 60; Globulin 1.9 g/dL (2.4-3.5); Glucose 89 mg/dL (83-110); Potassium 4.3 mmol/L (3.5-5.1); Protein, Total 5.3 g/dL (5.8-8.1); Sodium 139 mmol/L (136-145); Troponin I 0.063 ng/mL (< 0.028)
--- NOTE | 2018-03-25 13:11 | HP ---
ATTENDING PHYSICIAN: Dr. Yuan Stanton. HISTORY OF PRESENT ILLNESS: The patient is an 88-year-old male with a past medical history of hypertension, hyperlipidemia, prior CVA and was seen in the hospital on 03/02/2018 for subacute r ight subdural hematoma. At that time, the patient was evaluated by Milo Fitzgerald PA-C, and Dr. Sonam moreland and subdural was felt to be nonsurgical at that time. The patient was discharged to rehab facili and reports that he has been doing well and was discharged approximately 1 week ago to home. Once he was discharged home, the patient reports he resumed his regular 81 mg aspirin dose. Approximatel y 5 days ago, the patient reports he has had gradual increased unsteadiness with walking and family a lso reports intermittent confusion which prompted their return to the ER today. CT head on arrival w as notable for significantly increased right-sided subdural hematoma, acute on chronic in nature. I have seen the patient at the bedside. He is alert and oriented x3. His pupils are equal and reactiv e. He has no cranial nerve deficits. He has no focal weakness on my exam. PAST MEDICAL HISTORY: TIA, hypothyroidism, hypertension, hyperlipidemia, prior CVA, subdural hematom a on 03/02/2018. PAST SURGICAL HISTORY: The patient denies any prior surgery. SOCIAL HISTORY: The patient does not smoke, drink or use any drugs. He was recently discharged from inpatient rehabilitation to home. ALLERGIES: The patient allergic to PENICILLIN, SULFA. CURRENT MEDICATIONS: 81 mg aspirin; carvedilol 25 mg tab, 1 tab p.o. b.i.d.; nitroglycerin patch; pr avastatin 20 mg tab, 1 tab p.o. daily; levothyroxine 50 mcg tab, 1 tab p.o. daily; loratadine 10 mg t ab, 1 tab p.o. daily; fluoxetine 10 mg tab, 1 tab p.o. daily. PHYSICAL EXAMINATION: VITAL SIGNS: Blood pressure is 148/63, pulse is 75. The patient is 94% on room air, temperature is 98.4 CONSTITUTIONAL: The patient is sitting in bed comfortably, in no acute distress. He is AO x3. HEAD: Normocephalic, atraumatic. EYES: PERRLA. Extraocular movements are intact. ENT: Oral mucosa is pink, intact and moist. He has a normal voice. NECK: Nontender to palpation. Free active range of motion. No meningismus or nuchal rigidity. RESPIRATORY: The patient has symmetric chest expansion. No evidence of dyspnea. CARDIOVASCULAR: Regular rate and rhythm. MUSCULOSKELETAL: Good muscle tone to bilateral upper and lower extremities. No focal motor weakness is appreciated. NEUROLOGIC: The patient is AO x3. Normal speech. Normal cranial nerve exam. Normal finger to nose . ASSESSMENT AND PLAN: The patient appears to have significantly enlarged right acute on chronic subdu ral hematoma. This was compared to his previous scan on 03/02/2018. At this time, the patient is AO x3 and there are no focal deficits on my exam. We will plan to stop the patient's aspirin, admitted to the ICU for close monitoring, frequent neuro checks, head of the bed will be elevated 30 degrees and systolic blood pressure goal will be less than 150. I have discussed this with Dr. Stanton, he will also see the patient. We will plan to repeat head CT in the morning and I anticipate surgical i ntervention with bur holes on Sunday. I have discussed this with the patient and Dr. Lolis kidd, who will also discuss this plan with the patient. I have consulted the Hospitalist for celine onofre in medical management. Please reach out to Neurosurgery Service for additional questions or conc erns.
[2018-03-25] MEDS ORDERED: Ondansetron ODT 4 MG TAB PO PRN (13:17)
[2018-03-25] MEDS ORDERED: Senokot 8.6 MG TAB PO PRN (13:17)
[2018-03-25] MEDS ORDERED: Artificial Tears 18 DROP/0.9 ML EA EYE PRN (13:17)
[2018-03-25] MEDS ORDERED: Chloraseptic Spray 180 ml Bottle PO PRN (13:17)
[2018-03-25] MEDS ORDERED: Sodium Chloride 0.65% Nasal 44 ML BOT EA NARE PRN (13:17)
[2018-03-25] MEDS ORDERED: Eucerin (Mineral Oil/Petrolatum,White) 30 gm Jar TOP PRN (13:17)
[2018-03-25] MEDS ORDERED: Diabetic Tussin 200 MG/10 ML UDCUP PO PRN (13:17)
[2018-03-25] MEDS ORDERED: Bisacodyl 10 MG SUPP PR PRN (13:17)
[2018-03-25] MEDS ORDERED: Nitroglycerin 0.4 MG TAB (25 Tab Bottle) SL PRN (13:17)
[2018-03-25] MEDS ORDERED: Loperamide HCl 2 MG CAP PO PRN (13:17)
--- NOTE | 2018-03-25 13:22 | PDOC.PN ---
- Subjective Encounter Start Date: 03/25/18 Encounter Start Time: 13:20 -: old records requested/rev see my consult note for detail later - Objective Resuscitation Status: Resuscitation Status FULL:Full Resuscitation MAR Reviewed: Yes Result Diagrams: 03/25/18 12:23 03/25/18 12:23 Radiology Reviewed by me: Yes EKG Reviewed by me: Yes Phys Exam - Physical Examination Constitutional: NAD HEENT: PERRLA, moist MMs, sclera anicteric Neck: no JVD, supple Respiratory: no wheezing, no rales, no rhonchi Cardiovascular: RRR, no rub SM+ Gastrointestinal: soft, non-tender, no distention, positive bowel sounds Musculoskeletal: edema present left side weakness Psychiatric: normal affect Skin: no rash, normal turgor Dx/Plan (1) Acute on chronic intracranial subdural hematoma Code(s): I62.01 - NONTRAUMATIC ACUTE SUBDURAL HEMORRHAGE; I62.03 - NONTRAUMATIC CHRONIC SUBDURAL HEMORRHAGE Status: Acute (2) Demand ischemia Code(s): I24.8 - OTHER FORMS OF ACUTE ISCHEMIC HEART DISEASE Status: Acute (3) Encephalopathy acute Code(s): G93.40 - ENCEPHALOPATHY, UNSPECIFIED Status: Acute (4) Dyslipidemia Code(s): E78.5 - HYPERLIPIDEMIA, UNSPECIFIED Status: Chronic Comment: (5) H/O fall Code(s): Z91.81 - HISTORY OF FALLING Status: Chronic (6) H/O: CVA (cerebrovascular accident) Code(s): Z86.73 - PRSNL HX OF TIA (TIA), AND CEREB INFRC W/O RESID DEFICITS Status: Chronic (7) HTN (hypertension) Code(s): I10 - ESSENTIAL (PRIMARY) HYPERTENSION Status: Chronic Comment: (8) Severe mitral regurgitation by prior echocardiogram Code(s): I34.0 - NONRHEUMATIC MITRAL (VALVE) INSUFFICIENCY Status: Chronic - Plan cont current plan of care, plan discussed w/ family * will dictate consult note later * admit to ccu * hold aspirin * may need burhole * see orders. * will resume selected home meds * dc ivf Review of Systems - Review of Systems Constitutional: negative: fever, chills, sweats, weakness, malaise, other Eyes: negative: Pain, Vision Change, Conjunctivae Inflammation, Eyelid Inflammation, Redness, Other ENT: negative: Ear Pain, Ear Discharge, Nose Pain, Nose Discharge, Nose Congestion, Mouth Pain, Mouth Swelling, Throat Pain, Throat Swelling, Other Respiratory: negative: Cough, Dry, Shortness of Breath, Hemoptysis, SOB with Excertion, Pleuritic Pain, Sputum, Wheezing Cardiovascular: negative: chest pain, palpitations, orthopnea, paroxysmal nocturnal dyspnea, edema, light headedness, other Gastrointestinal: negative: Nausea, Vomiting, Abdominal Pain, Diarrhea, Constipation, Melena, Hematochezia, Other Genitourinary: negative: Dysuria, Frequency, Incontinence, Hematuria, Retention , Other Musculoskeletal: negative: Neck Pain, Shoulder Pain, Arm Pain, Back Pain, Hand Pain, Leg Pain, Foot Pain, Other Neurological: Weakness, Incoordination, Confusion. negative: Numbness, Change in Speech, Seizures, Other - Medications/Allergies Allergies/Adverse Reactions: Allergies Allergy/AdvReac Type Severity Reaction Status Date / Time Penicillins Allergy Verified 03/02/18 00:36 Sulfa (Sulfonamide Allergy Verified 03/02/18 00:36 Antibiotics) Medications: Current Medications Acetaminophen (Tylenol) 650 mg PO Q6H PRN PRN Reason: Fever > 101 or Headache Al Hydroxide/Mg Hydroxide (Maalox) 30 ml PO QIDPRN PRN PRN Reason: Dyspepsia Artificial Tears (Tears Naturale) 0 drop EA EYE PRN PRN PRN Reason: Dry Eyes Bisacodyl (Dulcolax) 10 mg TX DAILYPRN PRN PRN Reason: Constipation Cholecalciferol (Vitamin D3) 1,000 units PO DAILY NIKKI Guaifenesin (Robitussin Sf) 200 mg PO Q4H PRN PRN Reason: Cough Labetalol HCl (Normodyne) 10 mg SLOW IVP Q2H PRN PRN Reason: SBP > 150 or DBP > 90 Levothyroxine Sodium (Synthroid) 50 mcg PO 0600 NIKKI Lisinopril (Zestril) 5 mg PO BID NIKKI Loperamide HCl (Imodium) 2 mg PO PRN PRN PRN Reason: Diarrhea/Loose Stools Magnesium Hydroxide (Milk Of Magnesium) 30 ml PO BIDPRN PRN PRN Reason: Constipation Mineral Oil/White Petrolatum (Eucerin Cream) 0 gm TOP BIDPRN PRN PRN Reason: Dry Skin Morphine Sulfate (Morphine) 2 mg IV Q4H PRN PRN Reason: Pain Nicardipine/Sodium Chloride (Cardene) 0 mg IVPB INF PRN; Protocol PRN Reason: For SBP > 150 or DBP > 90 Nitroglycerin (Nitrostat) 0.4 mg SL Q5MIN PRN PRN Reason: Chest Pain Ondansetron HCl (Zofran) 4 mg IVP BIDPRN PRN PRN Reason: Nausea/Vomiting Ondansetron HCl (Zofran Odt) 4 mg PO Q6H PRN PRN Reason: Nausea/Vomiting Phenol (Chloraseptic Rose [place] 180 Ml Bot) 0 ml PO PRN PRN PRN Reason: Sore Throat Pravastatin Sodium (Pravachol) 20 mg PO HS NIKKI Senna (Senokot) 2 tab PO HSPRN PRN PRN Reason: Constipation Sodium Chloride (Flush - Normal Saline) 10 ml IVF PRN PRN PRN Reason: Saline Flush Sodium Chloride (Winkler Nasal Rose Bud 0.65%) 0 ml EA NARE QIDPRN PRN PRN Reason: Nasal Congestion
[2018-03-25 13:26] LABS: INR-International Normal Ratio 1.1; PTT 29.5 SEC (22.9-36.1); Prothrombin Time 14.7 SEC (12.0-14.7)
[2018-03-25 14:17] LABS: Bilirubin Negative (Negative); Blood, Urine Large (Negative); Clarity CLEAR (Clear); Glucose, Urine (Dipstick) Negative (Negative); Leukocyte Small (Negative); Nitrite Negative (Negative); Protein, Urine (Dipstick) Negative (Neg-Trace); Specific Gravity, Urine 1.025 (1.002-1.036); pH, Urine 5.5 (5.0-9.0)
[2018-03-25 14:28] LABS: Bacteria/HPF None Seen HPF (None Seen); Hyaline Casts/LPF 0-3 HYALINE CAST LPF (0-3 Hyaline); Pathc Cast-AUWi Flag 0.43 (0-2.49); Squamous Epithelial None Seen HPF (0-3); Yeast-AUWi Flag 29.3 (0-25.0)
[2018-03-25 14:35] LABS: Yeast-All Forms Rare HPF (None Seen)
[2018-03-25] MEDS: Labetalol HCl 100 MG/20 ML VIAL SLOW IVP PRN (17:00)
--- NOTE | 2018-03-25 19:01 | CON ---
DATE OF CONSULTATION: 03/25/2018 PRIMARY CARE PHYSICIAN: Dr. Vanessa Hussein. PRIMARY ATTENDING: Milo Stanton M.D. REASON FOR CONSULTATION: Medical comanagement. HISTORY OF PRESENT ILLNESS: An 88-year-old male who was recently admitted in our hospital on 03/02/2018, at that time, the patient had right-sided weakness. Initially, CT brain on that admission showed moderate sized right subdural hematoma. The patient also had repeat CT scan next day, which remained stable. During that admission, Neurology was consulted. The patient also had MRI brain which showed small to moderate sized right supratentorial subdural hematoma, subacute in nature with mild mass effect. Along with that the patient also found with acute or subacute infarction in the branch of territory of left anterior cerebral artery. Neurosurgery was following during that admission and they recommended conservative therapy. The patient was discharged to rehab facility on 03/04/2018. The patient was discharged from rehabilitation week before Sunday. Per patient' s son, the patient was doing relatively well. He was able to handle daily routines of activities, then the patient was discharged from rehab, at that time , the patient was started back on aspirin 81 mg p.o. daily. Since last Sunday, the patient was experiencing difficulty keeping himself standing, probable weakness. The patient was not able to put any weight on the right side. He was getting more and more confused. He was not able to participate with the daily activities of living. The patient was becoming more and more confused and that is why today, the patient was brought to the emergency room and the patient was found with acute on chronic subdural hematoma with subfalcine herniation. Neurosurgery admitted under their service and we were consulted for medical comanagement. When I saw this patient, at that time the patient was able to participate in history. He was almost alert and awake. He was having right-sided weakness, but he was also feeling a little bit of weakness on the left side. He did not have any seizure activity at home. He denies any chest pain or palpitation. He denies any recent fall. He denies any UTI symptoms. He denies any constipation, diarrhea, melena or hematochezia. REVIEW OF SYSTEMS: All review of system reviewed with the patient and family member and negative except as mentioned in the HPI. Constitutional: Weight loss or gain, ability to conduct usual activities. Skin: Rash, itching. Eyes: Double vision, pain. ENT/Mouth: Nose bleeding, neck stiffness, pain, tenderness. Cardiovascular: Palpitations, dyspnea on exertion, orthopnea. Respiratory: Shortness of breath, wheezing, cough, hemoptysis, fever or night sweats. Gastrointestinal: Poor appetite, abdominal pain, heartburn, nausea, vomiting, constipation, or diarrhea. Genitourinary: Urgency, frequency, dysuria, nocturia. Musculoskeletal: Pain, swelling. Neurologic/Psychiatric: Anxiety, depression. Allergy/Immunologic: Skin rash, bleeding tendency. PAST MEDICAL HISTORY: Coronary artery disease, hypertension, dyslipidemia, degenerative joint disease, rheumatoid arthritis, history of MN, history of ischemic cardiomyopathy, recent diagnosis of subacute subdural hematoma on the right side, history of cerebrovascular accident, and hypothyroidism. PAST SURGICAL HISTORY: EGD in 1998, colonoscopy in 1995 as well as in 1998. PAST PSYCHIATRIC HISTORY: Reviewed and negative. ALLERGIES: The patient is allergic to PENICILLIN, SULFA, ZOCOR that gives nausea, CELEBREX gives rash and the patient is not tolerating LISINOPRIL and HYDROCHLOROTHIAZIDE. SOCIAL HISTORY: The patient is a . He lives with his son. He was recently lived at [facility] and realized about a week ago. He does not have any tobacco, alcohol or illicit drug abuse. FAMILY HISTORY: Father from myocardial infarction. Mother also had a stroke. Heart disease runs among several family members. EMERGENCY ROOM COURSE: Reviewed. CURRENT HOME MEDICATIONS: Aspirin 81 mg p.o. daily, Coreg 25 mg twice daily, nitroglycerin p.r.n. basis, pravastatin 20 mg p.o. at bedtime, Synthroid 50 mcg p.o. daily, Claritin 10 mg p.o. daily, fluoxetine 10 mg p.o. daily. PAST PSYCHIATRIC HISTORY: Anxiety and depression. PHYSICAL EXAMINATION: VITAL SIGNS: On arrival, blood pressure 148/63, pulse 75, respiratory rate 18, temperature 98.4, saturation 94% on room air, weight 86.2 kilograms. GENERAL: The patient is currently alert, awake, no obvious acute distress. HEAD: Externally no obvious signs of trauma. Normocephalic. EYES: Pupils round, reactive to light. Extraocular muscle intact. ENT: Oropharynx within normal limits. Moist mucous membranes. No oral lesion , no pharyngeal erythema, no exudate. NECK: Supple, no JVD, no thyromegaly, no carotid bruit, no jugular venous distention. LUNGS: Clear to auscultation without any rhonchi or rales. CARDIAC: S1, S2 appears regular. No murmur elicited, no gallop, no rub. ABDOMEN: Soft, bowel sounds present, nontender, nondistended. No organomegaly , no mass, no suprapubic tenderness. BACK: Unremarkable, no CVA tenderness. EXTREMITIES: Upper extremity: Passive movements of all joints are normal. Lower extremity: Bilateral pitting lower extremity edema noted. Good distal pulsation. SKIN: No skin rash. HEMATOLOGICAL: No lymphadenopathy. PSYCHIATRIC: Normal affect. NEUROLOGIC: The patient grossly does not have any new focal neurological finding, but patient does have some weakness on the right side. Reflexes symmetrical. Sensation intake. Speech normal. Cranial nerves intact. Mental status is normal. SIGNIFICANT LABS: 1. EKG showing normal sinus rhythm, nonspecific ST-T changes. CT brain based on my review, acute on chronic subdural hematoma with subfalcine herniation. Chest x-ray based on my review, no acute cardiopulmonary process. Osteoarthritis of the shoulder joint. 2. CBC: WBC 6.7, hemoglobin 14.1, platelet 113. INR 1.1. BMP: Sodium 139, potassium 4.3, chloride 110, carbon dioxide 22, anion gap 11, BUN 23, creatinine 1.15, glucose 89, calcium 8.7. 3. LFT: AST 36, ALT 26, alkaline phosphatase 108, albumin 3.4, CK-MB 3.8, troponin I 0.063. Urinalysis: Leukocyte esterase small. Echocardiography was recently done which showed severe mitral regurgitation with normal EF. ASSESSMENT AND PLAN: 1. History of recent fall and subsequently diagnosed with a subdural hematoma, now the patient is coming back with acute on chronic subdural hematoma over right cerebral hemisphere with midline shift from left to right with subfalcine herniation. This patient has intermittent confusion and decline in activities status, likely related with his worsening subdural hematoma. The patient was recently started on aspirin, might be contributing culprit. At this point, the patient is admitted under neurosurgeon. This patient will be closely monitored in CCU for neurologic status. The patient will require roel hole surgery on Sunday. We will defer further management to primary team. 2. History of ischemic cerebrovascular accident. Unfortunately, because of worsening of hematoma, the patient cannot have any antiplatelet medication or any anticoagulant medication. The patient will need PT, OT, and stroke team evaluation and we will try to send him back to [facility] if possible. We will hold on all antiplatelet or anticoagulant therapy until cleared by neurosurgeon. 3. Mild thrombocytopenia. Monitor platelet count. Repeat CBC tomorrow. 4. Elevated troponin likely related with demand ischemia. We will repeat cardiac enzymes tomorrow morning. 5. Bilateral lower extremity edema. This patient has severe mitral regurgitation and suspecting diastolic heart failure. We will check BNP tomorrow. We will continue Lasix 40 mg p.o. daily. 6. Hypothyroidism. Continue Synthroid 50 mcg p.o. daily and check TSH tomorrow. 7. Anxiety and depression. Continue Prozac 20 mg p.o. daily. 8. Hypertension. We will continue lisinopril 5 mg p.o. daily and monitor blood pressure medication. 9. Dyslipidemia. We will continue pravastatin 20 mg p.o. at bedtime. 10. Deep venous thrombosis prophylaxis. Sequential compression device boots. No Lovenox because of bleeding, hematoma. 11. Gastrointestinal prophylaxis, Pepcid 20 mg p.o. b.i.d. 12. Code status. I spoke with the patient and patient's son, the patient wanted to be a full code. The patient's son is surrogate decision maker. 13. Asymptomatic urinary tract infection. His urinalysis is suggestive of mild infection. At this point, we will send urine culture and will not give him antibiotic therapy until culture reports given afebrile and WBC count. Disposition and plan based on clinical course. The patient and family member prefers him to go back to [facility] if possible. Stroke team will be consulted and we will try to send him to rehab if possible. Thank you for the consult. We will follow up with you on a daily basis. Plan of care discussed with the patient and son at bedside in the emergency room. MARIANGEL
[2018-03-25] MEDS ORDERED: Simvastatin 5 MG TAB PO SCH (21:00)
[2018-03-25] MEDS ORDERED: Lisinopril 5 MG TAB PO SCH (21:00)
[2018-03-25] MEDS: Pravastatin Sodium 20 MG TAB PO SCH (22:10)
[2018-03-26 04:58] LABS: #Eosinphils 0.2 thou/uL (0.0-0.7); #Lymphocytes 1.1 thou/uL (1.20-3.40); #Monocytes 0.6 thou/uL (0.11-0.59); #Neutrophils 4.4 thou/uL (1.40-6.50); %Basophils 0.3 % (0.0-1.0); %Eosinophils 2.9 % (0.0-10.0); %Lymphocytes 17.5 % (21.0-51.0); %Monocytes 9.7 % (0.0-10.0); %Neutrophils 69.6 % (42.0-75.0); Hemoglobin 13.4 g/dL (14.0-18.0); Mean Corpuscular HGB CONC 32.8 g/dL (32.0-36.0); Mean Corpuscular Hemoglobin 29.8 pg (27.0-31.0); Platelet Count 103 thou/uL (130-400); RBC Distribution Width 12.8 % (11.5-14.5); Red Blood Cell (RBC) Count 4.49 mill/uL (4.70-6.10); White Blood Cell (WBC) Count 6.4 thou/uL (4.8-10.8)
[2018-03-26 05:03] LABS: Anion Gap 11 mmol/L (10-20); BUN (Urea Nitrogen) 20 mg/dL (8.4-25.7); Calc. Creatinine Clearance 72 mL/min (70-130); Calcium 8.5 mg/dL (7.8-10.44); Carbon Dioxide 24 mmol/L (23-31); Chloride 110 mmol/L (98-107); Estimated GFR-MDRD 82; Glucose 102 mg/dL (83-110); Magnesium 1.9 mg/dL (1.6-2.6); Sodium 141 mmol/L (136-145)
[2018-03-26 05:09] LABS: CKMB 2.2 ng/mL (0-6.6); Troponin I 0.045 ng/mL (< 0.028)
[2018-03-26] MEDS ORDERED: niCARdipine HCl 25 MG in Sodium Chloride 0.9% 250 ML 240 ML IVPB SCH (05:15)
--- NOTE | 2018-03-26 05:22 | CON ---
DATE OF CONSULTATION: 03/25/2018 HISTORY OF PRESENT ILLNESS: Mr. Johnson is an 88-year-old gentleman who was brought to the hospital wi th lower extremity weakness. He was just recently discharged on 03/04/2018. He is from the [facility]. A CT of the head shows right acute on chronic subdural. Apparently, he is scheduled to under go a roel hole on Sunday. Today is Sunday. His events during his last visit revealed a small-to- moderate size right-sided subdural hematoma. Probably, subacute in origin associated with some ische tor[place] cerebrovascular accident. At the time of his discharge to [facility], he was carrie arently doing good until the last 24 to 48 hours, when he developed progressive weakness. He denies any chest pain, chills, or sweats. The patient is awake, alert, responsive at this stage, his only complaint appears to be some weakness. Denies any coughing or wheezing. PAST MEDICAL HISTORY: Coronary artery disease, hypertension, hyperlipidemia, DJD, arthritis, previou s myocardial infarction, cardiomyopathy. PAST SURGICAL HISTORY: EGD, colon. ALLERGIES: Multiple as outlined. HYDROCHLOROTHIAZIDE, PENICILLIN, ZOCOR, SULFA. MEDICATIONS: Medicine from the residential; vitamin, Prozac 20, pravastatin 20, nitro 0.2, lisinopr il 5, Synthroid 50 mcg. SOCIAL HISTORY: Tobacco, none. Alcohol, none. REVIEW OF SYSTEMS: Otherwise, 10-point negative. PHYSICAL EXAMINATION: GENERAL: On examination, he is awake, alert, responsive. VITAL SIGNS: Pulse 73, blood pressure 140/83, respirations 24, sats 96% on room air. CHEST: Decreased breath sounds. No wheezing. CARDIAC: Normal S1 and S2. No gallops. ABDOMEN: Soft without any masses. NEUROLOGIC: Awake, responsive. EXTREMITIES: No edema. IMAGING: I reviewed the CT of his brain, shows chronic subdural subacute. Chest x-ray taken on admi ssion shows no acute infiltrates. LABORATORY DATA: BUN and creatinine are normal. White count 6000, H&H 14 and 42, platelet count low at 113. Troponin is normal. Thrombocytopenia is apparently chronic. IMPRESSION: 1. Acute on chronic right subdural. 2. Chronic thrombocytopenia. 3. Cardiomyopathy. 4. Advanced age. 5. Lower extremity weakness. PLAN: As per Neurosurgery, subdural evacuation in the next several days. Pulmonary will follow him while in the ICU. This is a consultation note, 70 minutes, of which 50% direct patient care.
[2018-03-26] MEDS: niCARdipine HCl 25 MG in Sodium Chloride 0.9% 250 ML 240 ML IVPB PRN ×2 (05:30→15:22)
[2018-03-26] MEDS: Levothyroxine Sodium 50 MCG TAB PO SCH (06:15)
[2018-03-26] MEDS: Furosemide 40 MG TAB PO SCH (08:25)
[2018-03-26] MEDS: Lisinopril 5 MG TAB PO SCH (08:48)
[2018-03-26] MEDS: FLUoxetine HCl 20 MG CAP PO SCH (08:48)
[2018-03-26] MEDS: Famotidine 20 MG TAB PO SCH (08:48)
--- NOTE | 2018-03-26 09:17 | CT ---
PRELIMINARY REPORT/[facility]/EMERGENTY AFTER-HOURS PROCEDURE Addendum created by Haroon Dutton MD on 03/26/2018 4:37 AM Central Time ([place] & [place]) THIS REPORT CONTAI NS FINDINGS THAT MAY BE CRITICAL TO PATIENT CARE. The findings were verbally communicated via telepho ne conference with JERED Shipman at 4:36 AM CDT on 03/26/2018. The findings were acknowledged and understood. Initial Report created on 03/26/2018 4:34 AM Central Time ([place] & [place]) CT Head Without Intravenous Contrast EXAM DATE/TIME: Exam ordered 03/26/2018 4:01 AM CLINICAL HISTORY: 88 years old, male; Condition or disease; Other: Subdural hematoma; Patient HX: Follow up subdural he matoma TECHNIQUE: Axial computed tomography images of the head/brain without intravenous contrast. COMPARISON: CT Brain WO Con 2018-03-02 04:23 FINDINGS: Brain: There is interval enlargement of a RIGHT frontoparietal convexity subdural hemorrhage now preet uring 3.3 cm with marked midline shift from RIGHT to LEFT of approximately 1.8 cm. The basal cisterns are patent. No significant white matter disease. Ventricles: Normal. No ventriculomegaly. Bones/joints: Normal. No acute fracture. Soft tissues: Normal. Sinuses: Unremarkable as visualized. No acute sinusitis. Mastoid air cells: Unremarkable as visualized. No mastoid effusion. IMPRESSION: Since 03/02/18, Increased RIGHT subdural hemorrhage with marked midline shift as above. (An addendum ma y be issued if a more recent comparison study is submitted). Thank you for allowing us to participate in the care of your patient. Dictated and Authenticated by: Haroon Dutton MD 03/26/2018 4:34 AM Central Time ([place] & [place]) FINAL REPORT EMERGENCY AFTER HOURS CT HEAD: Date: 03/26/18 HISTORY: Subdural hematoma. This is a follow-up evaluation. IMPRESSION: Interval enlargement of a large mixed density right subdural collection/hemorrhage with measurement o f approximately 3.1 cm and measurement on the prior study was 2.8 cm. There is persistent mass effect on the right cerebral hemisphere and shift of the midline structures to the left with midline shift measuring 12.4 mm, previously measured 12.0 mm. Again, there is effacement of the right lateral ventr icle. I agree with the preliminary report given by Cheo. POS: SEVERIANO
--- NOTE | 2018-03-26 09:46 | PRG ---
DATE OF SERVICE: 03/26/2018 This morning he is awake, alert, responsive. He is weak. PHYSICAL EXAMINATION: VITAL SIGNS: Pulse is 63, temperature 98, blood pressure 120/60, sats are 90%. CHEST: Chest reveals decreased breath sounds without wheezing. CARDIAC: Normal S1, S2. No gallops. ABDOMEN: Soft, no masses. Electrolytes are normal. White count 6, H&H are 13 and 40. IMPRESSION: 1. Status post subdural right. 2. Weakness. PLAN: Continue ICU observation, await input from Neurosurgery regarding evacuation of subdural. Otherwise, supportive care. I will follow while in the ICU.
--- NOTE | 2018-03-26 10:20 | PRG ---
DATE OF SERVICE: 03/26/2018 The patient is seen and examined. I agree with Shamika Camilo's note 03/25/2018. The patient is an [age]-year-old man evaluated earlier this month for a small chronic right subdural hematoma. He has resu med his aspirin and has had recent decline over the past [address] scan reveals significant enl argement of his acute on chronic right chronic subdural hematoma. IMPRESSION AND PLAN: The patient is going to need roel hole drainage of his right subdural hematoma. I discussed the indications, the alternatives with the patient and his family and they expressed un derstanding and wished to proceed. We plan to proceed in the morning and will hold aspirin indefinit josef.
--- NOTE | 2018-03-26 19:01 | PDOC.PN ---
- Subjective Encounter Start Date: 03/26/18 Encounter Start Time: 12:30 Subjective: pt up in bed no compalins - Objective Vital Signs & Weight: Vital Signs (12 hours) Temp Pulse Resp Pulse Ox 03/26/18 16:00 98.3 F 03/26/18 12:00 98.2 F 03/26/18 08:48 63 03/26/18 08:00 98.2 F 83 22 H 99 Weight Admit Weight 191 lb Weight 191 lb 9.307 oz Most Recent Monitor Data Heart Rate from ECG 83 NIBP 131/60 NIBP BP-Mean 66 Respiration from ECG 23 SpO2 100 I&O: 03/25/18 03/26/18 03/27/18 06:59 06:59 06:59 Intake Total 425 1267 Output Total 939 2310 Balance -514 1046 Result Diagrams: 03/26/18 04:16 03/26/18 04:16 Dx/Plan - Plan 1) Acute on chronic intracranial subdural hematoma 2) Demand ishemia 3) Acute encephalopathy 4) Dyslipidemia 5) htn 6) severe mitral regurgitation plan: pt to go for surgery in am for worsening subdural hematoma. will continue to monitor. will continue home meds. * . Review of Systems - Review of Systems Eyes: negative: Pain, Vision Change, Conjunctivae Inflammation, Eyelid Inflammation, Redness, Other ENT: negative: Ear Pain, Ear Discharge, Nose Pain, Nose Discharge, Nose Congestion, Mouth Pain, Mouth Swelling, Throat Pain, Throat Swelling, Other Respiratory: negative: Cough, Dry, Shortness of Breath, Hemoptysis, SOB with Excertion, Pleuritic Pain, Sputum, Wheezing Cardiovascular: negative: chest pain, palpitations, orthopnea, paroxysmal nocturnal dyspnea, edema, light headedness, other Gastrointestinal: negative: Nausea, Vomiting, Abdominal Pain, Diarrhea, Constipation, Melena, Hematochezia, Other Genitourinary: negative: Dysuria, Frequency, Incontinence, Hematuria, Retention , Other - Medications/Allergies Allergies/Adverse Reactions: Allergies Allergy/AdvReac Type Severity Reaction Status Date / Time celecoxib [From Celebrex] Allergy Verified 03/25/18 15:13 hydrochlorothiazide Allergy Verified 03/25/18 15:13 Penicillins Allergy Verified 03/02/18 00:36 simvastatin [From Zocor] Allergy Verified 03/25/18 15:13 Sulfa (Sulfonamide Allergy Verified 03/02/18 00:36 Antibiotics) Medications: Current Medications Acetaminophen (Tylenol) 650 mg PO Q6H PRN PRN Reason: Fever > 101 or Headache Al Hydroxide/Mg Hydroxide (Maalox) 30 ml PO QIDPRN PRN PRN Reason: Dyspepsia Artificial Tears (Tears Naturale) 0 drop EA EYE PRN PRN PRN Reason: Dry Eyes Bisacodyl (Dulcolax) 10 mg [place] DAILYPRN PRN PRN Reason: Constipation Cholecalciferol (Vitamin D3) 1,000 units PO DAILY [facility] Last Admin: 03/26/18 09:30 Dose: 1,000 units Famotidine (Pepcid) 20 mg PO DAILY [facility] Last Admin: 03/26/18 08:48 Dose: 20 mg Fluoxetine HCl (Prozac) 20 mg PO DAILY [facility] Last Admin: 03/26/18 08:48 Dose: 20 mg Furosemide (Lasix) 40 mg PO DAILY[facility] Last Admin: 03/26/18 08:25 Dose: 40 mg Guaifenesin (Robitussin Sf) 200 mg PO Q4H PRN PRN Reason: Cough Nicardipine HCl 25 mg/ Sodium (Chloride) 250 mls @ 0 mls/hr IVPB INF PRN; Protocol; Titrate PRN Reason: FOR SBP > 150 OR DBP > 90 Last Admin: 03/26/18 15:22 Dose: 250 mls Labetalol HCl (Normodyne) 10 mg SLOW IVP Q2H PRN PRN Reason: SBP > 150 or DBP > 90 Last Admin: 03/25/18 17:00 Dose: 10 mg Levothyroxine Sodium (Synthroid) 50 mcg PO 0600 [facility] Last Admin: 03/26/18 06:15 Dose: 50 mcg Lisinopril (Zestril) 5 mg PO DAILY [facility] Last Admin: 03/26/18 08:48 Dose: 5 mg Loperamide HCl (Imodium) 2 mg PO PRN PRN PRN Reason: Diarrhea/Loose Stools Magnesium Hydroxide (Milk Of Magnesium) 30 ml PO BIDPRN PRN PRN Reason: Constipation Mineral Oil/White Petrolatum (Eucerin Cream) 0 gm TOP BIDPRN PRN PRN Reason: Dry Skin Morphine Sulfate (Morphine) 2 mg IV Q4H PRN PRN Reason: Pain Nitroglycerin (Nitrostat) 0.4 mg SL Q5MIN PRN PRN Reason: Chest Pain Ondansetron HCl (Zofran) 4 mg IVP BIDPRN PRN PRN Reason: Nausea/Vomiting Ondansetron HCl (Zofran Odt) 4 mg PO Q6H PRN PRN Reason: Nausea/Vomiting Phenol (Chloraseptic [place] 180 Ml Bot) 0 ml PO PRN PRN PRN Reason: Sore Throat Pravastatin Sodium (Pravachol) 20 mg PO HS [facility] Last Admin: 03/25/18 22:10 Dose: 20 mg Senna (Senokot) 2 tab PO HSPRN PRN PRN Reason: Constipation Sodium Chloride (Flush - Normal Saline) 10 ml IVF PRN PRN PRN Reason: Saline Flush Last Admin: 03/25/18 17:00 Dose: 10 ml Sodium Chloride ([place] Nasal [place] 0.65%) 0 ml EA NARE QIDPRN PRN PRN Reason: Nasal Congestion
[2018-03-26] MEDS: Pravastatin Sodium 20 MG TAB PO SCH (21:30)
[2018-03-27] MEDS: niCARdipine HCl 25 MG in Sodium Chloride 0.9% 250 ML 240 ML IVPB PRN ×2 (06:12→18:05)
[2018-03-27] MEDS: Levothyroxine Sodium 50 MCG TAB PO SCH (06:12)
[2018-03-27] MEDS: Furosemide 40 MG TAB PO SCH (08:00)
--- NOTE | 2018-03-27 08:02 | PRG ---
DATE OF SERVICE: 03/27/2018 This morning he is still somewhat encephalopathic, but in no distress. PHYSICAL EXAMINATION: VITAL SIGNS: Sats are 98 on room air, pulse 76, blood pressure 159/72, respiration 20. Temperature, he is afebrile. CHEST: Chest reveals decreased breath sounds, no wheezing. CARDIAC: Normal S1, S2. No gallops. ABDOMEN: Soft, no masses. IMPRESSION: Right subdural. The patient is scheduled to have a bur hole procedure done today by Neurosurgery. I will follow while in the ICU. Supportive care.
[2018-03-27] MEDS: Famotidine 20 MG TAB PO SCH (09:00)
[2018-03-27] MEDS: FLUoxetine HCl 20 MG CAP PO SCH (09:00)
[2018-03-27] MEDS ORDERED: Fentanyl 100 MCG/2 ML VIAL ONE ×2 (09:33→11:22)
[2018-03-27] MEDS ORDERED: Promethazine HCl 25 MG/ML VIAL ONE (09:43)
[2018-03-27] MEDS ORDERED: Lidocaine 0.5%/Epinephrine 1:200,000 50 ml Vial ONE (10:08)
[2018-03-27] MEDS ORDERED: Thrombin 5000 UNITS/5 ML VIAL ONE (10:08)
[2018-03-27] MEDS ORDERED: Sodium Chloride 0.9% 0 ML ONE (10:08)
[2018-03-27] MEDS ORDERED: Promethazine HCl 25 MG/ML VIAL SLOW IVP PRN (11:18)
[2018-03-27] MEDS ORDERED: Morphine Sulfate 2 MG/ML SYRINGE SLOW IVP PRN (11:18)
[2018-03-27] MEDS ORDERED: Ondansetron HCl/PF 4 MG/2 ML Vial IVP PRN (11:18)
[2018-03-27] MEDS: Lisinopril 5 MG TAB PO SCH (12:00)
--- NOTE | 2018-03-27 12:00 | OP ---
DATE OF PROCEDURE: 03/27/2018 SURGEON: Milo Stanton M.D. [employer] MACHINE OPERATOR: Trina Sullivan PROCEDURE: Right bur holes drainage subdural hematoma. PROCEDURE IN DETAIL: The patient was brought to the operating room and intubated. He was positioned supine. Two incisions were fashioned in the right mid pupillary line and roel holes were placed. T he dura was coagulated and divided and jorge l subdural hematoma was aspirated under some pressure. Yang bdural space was aspirated until clear. The drain was left in place through the posterior bur hole. The wounds were extensively irrigated and then closed in anatomic layers.
[2018-03-27] MEDS ORDERED: Esmolol 100 MG/10 ML VIAL ONE (13:24)
[2018-03-27] MEDS ORDERED: Glycopyrrolate 0.2 MG/ML 5 ML SYRINGE ONE (13:24)
[2018-03-27] MEDS ORDERED: PHENYLEPHRINE-NS 100 MCG/ML 10 ML SYRINGE ONE (13:24)
[2018-03-27] MEDS ORDERED: ePHEDrine/0.9% NaCl/PF SYRINGE 50 mg/10 ml ONE (13:24)
[2018-03-27] MEDS ORDERED: Lidocaine 1% PF 5 ML VIAL ONE (13:24)
[2018-03-27] MEDS ORDERED: PROPOFOL 200 MG/20 ML VIAL ONE (13:24)
[2018-03-27] MEDS: Clindamycin/D5W 900 MG in Premix Bag 1 BAG IVPB SCH ×2 (15:10→21:15)
[2018-03-27] MEDS: Pravastatin Sodium 20 MG TAB PO SCH (21:15)
[2018-03-28] MEDS: Clindamycin/D5W 900 MG in Premix Bag 1 BAG IVPB SCH ×3 (04:13→21:00)
[2018-03-28] MEDS: Levothyroxine Sodium 50 MCG TAB PO SCH (04:13)
[2018-03-28] MEDS: niCARdipine HCl 25 MG in Sodium Chloride 0.9% 250 ML 240 ML IVPB PRN (04:39)
--- NOTE | 2018-03-28 06:27 | PDOC.PN ---
- Subjective Encounter Start Date: 03/27/18 Encounter Start Time: 14:00 Subjective: pt up in bed no complains of pain - Objective Vital Signs & Weight: Vital Signs (12 hours) Temp Pulse Resp Pulse Ox 03/28/18 04:00 97.4 F L 03/27/18 20:00 98.0 F 64 16 97 Weight Admit Weight 191 lb Weight 188 lb 14.4 oz Most Recent Monitor Data Heart Rate from ECG 65 NIBP 126/58 NIBP BP-Mean 70 Respiration from ECG 19 SpO2 98 I&O: 03/26/18 03/27/18 03/28/18 06:59 06:59 06:59 Intake Total 425 1754 1611 Output Total 939 4740 1356 Balance -514 -2283 255 Result Diagrams: 03/26/18 04:16 03/26/18 04:16 Phys Exam - Physical Examination james drain Respiratory: no wheezing, no rales, no rhonchi, wheezing present, clear to auscultation bilateral Cardiovascular: RRR, no significant murmur, no rub, gallop, irregular Gastrointestinal: soft, non-tender, no distention, positive bowel sounds Dx/Plan - Plan 1) Acute on chronic intracranial subdural hematoma 2) Demand ishemia 3) Acute encephalopathy 4) Dyslipidemia 5) htn 6) severe mitral regurgitation plan: s/p roel holes for subdural hematoma. will continue to monitor. will continue home meds. urine cx for 10,000-25,000 enterococcus will wait for sensitives. pt has no elevated wbc or fever. * .
[2018-03-28] MEDS: Lisinopril 5 MG TAB PO SCH (08:31)
[2018-03-28] MEDS: Famotidine 20 MG TAB PO SCH (08:31)
[2018-03-28] MEDS: FLUoxetine HCl 20 MG CAP PO SCH (08:31)
[2018-03-28] MEDS: Losartan 25 MG TAB PO SCH (08:55)
[2018-03-28] MEDS ORDERED: Lisinopril 5 MG TAB PO SCH (09:00)
--- NOTE | 2018-03-28 09:05 | PRG ---
DATE OF SERVICE: 03/28/2018 SUBJECTIVE: This morning, he is awake, alert and responsive. He denies any pain or discomfort. He denies any difficulty breathing. OBJECTIVE: VITAL SIGNS: His blood pressure is 126/70, pulse 79, sats 98%, respirations 24. He is in a Cardene drip. His I's and O's have been 1611 in and 1356 out. CHEST: No wheezing or crackles. CARDIAC: Normal S1, S2, no gallops. ABDOMEN: Soft. NEUROLOGIC: He is awake, alert and responsive. IMPRESSION: Status post right roel hole, subdural hematoma. PLAN: Continue observation in the ICU with a drain in place. Once the drain is removed, he can be t ransferred out of the ICU. In the meantime, restart his blood pressure medication. PT, supportive c are, nutrition. We will follow.
[2018-03-28 10:25] LABS: Chloride 106 mmol/L (98-107); Potassium 4.2 mmol/L (3.5-5.1); Sodium 138 mmol/L (136-145)
[2018-03-28 10:26] LABS: Calcium 8.6 mg/dL (7.8-10.44); Glucose 138 mg/dL (83-110)
[2018-03-28 10:28] LABS: Anion Gap 10 mmol/L (10-20); Carbon Dioxide 26 mmol/L (23-31)
[2018-03-28 10:30] LABS: BUN (Urea Nitrogen) 18 mg/dL (8.4-25.7); Calc. Creatinine Clearance 70 mL/min (70-130); Estimated GFR-MDRD 80
[2018-03-28 10:36] LABS: Band 3 % (5-11); Hemoglobin 14.2 g/dL (14.0-18.0); Lymphocytes 7 % (21-51); MDiff Complete? YES; Mean Corpuscular HGB CONC 32.6 g/dL (32.0-36.0); Mean Corpuscular Volume 92.2 fl (80.0-94.0); Mean Platelet Volume 8.7 fL (7.4-10.4); Monocytes 4 % (0-10); Neutrophil 86 % (42-75); PLT Morphology Comment Appears Decreased; Platelet Count 120 thou/uL (130-400); RBC Distribution Width 12.8 % (11.5-14.5); Red Blood Cell (RBC) Count 4.71 mill/uL (4.70-6.10); White Blood Cell (WBC) Count 8.3 thou/uL (4.8-10.8)
--- NOTE | 2018-03-28 11:16 | CT ---
PRELIMINARY REPORT/[facility]/EMERGENTY AFTER-HOURS PROCEDURE CT Head Without Intravenous Contrast CLINICAL HISTORY: 88 years old, male; Condition or disease; Other: Sdh; Prior surgery; Surgery date: Post-operative (0- 2 days); Surgery type: Sdh evacuation TECHNIQUE: Axial computed tomography images of the head/brain without intravenous contrast. COMPARISON: CT Brain WO Con 2018-03-26 04:01 FINDINGS: Interval placement of right subdural drain traversing a parietal roel hole and terminating in the rig ht temporal region. Interval decrease of right sided subdural acute on chronic hemorrhage measuring up to 18 mm in thickn ess. Mild mass effect and approximately 5 mm midline shift to the left are noted. Interval reexpansion of the right lateral ventricle with mild residual mass effect. The cisterns are patent. There is no acute territorial infarction. Faint left frontal subarachnoid he morrhage versus artifact There is minimal mucosal thickening in the paranasal sinuses IMPRESSION: Interval subdural drain placement on the right with decreased right subdural hematoma Reexpansion of the right lateral ventricle and decreased shift to the left. Thank you for allowing us to participate in the care of your patient. Dictated and Authenticated by: Jemal Nuñez MD 03/28/2018 5:19 AM Central Time ([place] & [place]) FINAL REPORT CT BRAIN WITHOUT CONTRAST: Final report is in agreement with the preliminary interpretation. Referencing the 03/26/18 exam, there has been interval reduced volume of mixed density extraaxial hemor rhagic collection overlying the right convexity with an indwelling drainage catheter. There remains sulcal effacement of the mass effect with leftward subfalcine herniation and deviation of the septum pellucidum beyond midline. Continued followup is warranted. POS: ALICIA
[2018-03-28] MEDS: Pravastatin Sodium 20 MG TAB PO SCH (21:01)
[2018-03-29 04:43] LABS: Anion Gap 10 mmol/L (10-20); BUN (Urea Nitrogen) 23 mg/dL (8.4-25.7); Calc. Creatinine Clearance 55 mL/min (70-130); Calcium 8.6 mg/dL (7.8-10.44); Carbon Dioxide 26 mmol/L (23-31); Chloride 105 mmol/L (98-107); Estimated GFR-MDRD 61; Glucose 104 mg/dL (83-110); Potassium 4.2 mmol/L (3.5-5.1); Sodium 137 mmol/L (136-145)
[2018-03-29] MEDS: Clindamycin/D5W 900 MG in Premix Bag 1 BAG IVPB SCH (04:49)
[2018-03-29] MEDS: Levothyroxine Sodium 50 MCG TAB PO SCH (05:16)
[2018-03-29 05:18] LABS: #Eosinphils 0.3 thou/uL (0.0-0.7); #Lymphocytes 1.1 thou/uL (1.20-3.40); #Monocytes 0.8 thou/uL (0.11-0.59); #Neutrophils 5.1 thou/uL (1.40-6.50); %Basophils 0.3 % (0.0-1.0); %Eosinophils 3.5 % (0.0-10.0); %Lymphocytes 14.9 % (21.0-51.0); %Monocytes 11.3 % (0.0-10.0); Hemoglobin 13.3 g/dL (14.0-18.0); Mean Corpuscular HGB CONC 31.7 g/dL (32.0-36.0); Mean Corpuscular Hemoglobin 28.9 pg (27.0-31.0); Mean Corpuscular Volume 91.2 fl (80.0-94.0); Platelet Count 110 thou/uL (130-400); RBC Distribution Width 12.9 % (11.5-14.5); White Blood Cell (WBC) Count 7.3 thou/uL (4.8-10.8)
--- NOTE | 2018-03-29 08:35 | PRG ---
DATE OF SERVICE: 03/29/2018 This is an 88-year-old male who was seen in the emergency department on 03/25/2018 for acut e on chronic right subdural hematoma. He underwent right subdural hematoma evacuation with bur holes x2 on 03/27/2018. Since then he has been monitored in the ICU and is doing very well. His subdural RODO drain output has decreased and I have removed his drain this morning. He is awake and alert. He has no focal neurologic deficits. He is tolerating a regular diet and has been up with physical the rapy. We have transitioned him from a Cardene drip back to his regular blood pressure medicines. Th is morning I plan to transition the patient to the stroke floor. He will continue to need PT, OT, an d I suspect a rehab placement. Kriss is also assisting with this management. Please reach out to Ne urosurgery for additional questions or concerns.
[2018-03-29] MEDS: Lisinopril 5 MG TAB PO SCH (09:30)
[2018-03-29] MEDS: Famotidine 20 MG TAB PO SCH (09:31)
[2018-03-29] MEDS: Losartan 25 MG TAB PO SCH (09:31)
[2018-03-29] MEDS: FLUoxetine HCl 20 MG CAP PO SCH (09:31)
--- NOTE | 2018-03-29 09:45 | PRG ---
DATE OF SERVICE: 03/29/2018 SUBJECTIVE: This morning, awake, alert and responsive. Denies any pain, shortness of breath. OBJECTIVE: VITAL SIGNS: Blood pressure 133/63, pulse 67, respiration is 18, sats are 100%. CHEST: Decreased breath sounds without any wheezing. CARDIAC: Normal S1, S2. No gallops. ABDOMEN: Soft, no masses. ASSESSMENT: 1. Status post right subdural evacuation. 2. Hypertension. PLAN: Patient appears to be much improved. Await input from Neurology regarding transfer out. We will follow while in the ICU.
--- NOTE | 2018-03-29 20:16 | PDOC.PN ---
- Subjective Encounter Start Date: 03/28/18 Encounter Start Time: 11:30 Subjective: pt up in bed no complains - Objective Vital Signs & Weight: Vital Signs (12 hours) Temp Pulse Pulse Pulse Resp BP BP 03/29/18 19:41 97.7 F 71 20 03/29/18 17:20 99.7 F H 77 20 03/29/18 13:50 68 67 182/76 H 03/29/18 09:30 65 118/50 L BP BP Pulse Ox 03/29/18 19:41 128/62 97 03/29/18 17:20 145/69 H 96 03/29/18 13:50 140/61 03/29/18 09:30 Weight Admit Weight 191 lb Weight 189 lb 6.033 oz Most Recent Monitor Data Heart Rate from ECG 67 NIBP 113/56 NIBP BP-Mean 75 Respiration from ECG 13 SpO2 100 I&O: 03/28/18 03/29/18 03/30/18 06:59 06:59 06:59 Intake Total 1611 1511 780 Output Total 1356 2007 665 Balance 255 -496 115 Result Diagrams: 03/29/18 03:47 03/29/18 03:47 Phys Exam - Physical Examination HEENT: PERRLA, moist MMs, sclera anicteric, TM's clear, oral pharynx no lesions , 2+ tonsils Respiratory: no wheezing, no rales, no rhonchi, wheezing present, clear to auscultation bilateral Cardiovascular: RRR, no significant murmur, no rub, gallop, irregular Gastrointestinal: soft, non-tender, no distention, positive bowel sounds Musculoskeletal: no edema, pulses present, edema present Dx/Plan - Plan 1) Acute on chronic intracranial subdural hematoma 2) Demand ishemia 3) Acute encephalopathy 4) Dyslipidemia 5) htn 6) severe mitral regurgitation plan: s/p roel holes for subdural hematoma. will continue to monitor. will continue home meds. urine cx for 10,000-25,000 enterococcus will wait for sensitives. pt has no elevated wbc or fever. will hold off on abx * . Review of Systems - Review of Systems Eyes: negative: Pain, Vision Change, Conjunctivae Inflammation, Eyelid Inflammation, Redness, Other ENT: negative: Ear Pain, Ear Discharge, Nose Pain, Nose Discharge, Nose Congestion, Mouth Pain, Mouth Swelling, Throat Pain, Throat Swelling, Other Respiratory: negative: Cough, Dry, Shortness of Breath, Hemoptysis, SOB with Excertion, Pleuritic Pain, Sputum, Wheezing Cardiovascular: negative: chest pain, palpitations, orthopnea, paroxysmal nocturnal dyspnea, edema, light headedness, other Gastrointestinal: negative: Nausea, Vomiting, Abdominal Pain, Diarrhea, Constipation, Melena, Hematochezia, Other Genitourinary: negative: Dysuria, Frequency, Incontinence, Hematuria, Retention , Other - Medications/Allergies Allergies/Adverse Reactions: Allergies Allergy/AdvReac Type Severity Reaction Status Date / Time celecoxib [From Celebrex] Allergy Verified 03/25/18 15:13 hydrochlorothiazide Allergy Verified 03/25/18 15:13 Penicillins Allergy Verified 03/02/18 00:36 simvastatin [From Zocor] Allergy Verified 03/25/18 15:13 Sulfa (Sulfonamide Allergy Verified 03/02/18 00:36 Antibiotics) Medications: Current Medications Acetaminophen (Tylenol) 650 mg PO Q6H PRN PRN Reason: Fever > 101 or Headache Al Hydroxide/Mg Hydroxide (Maalox) 30 ml PO QIDPRN PRN PRN Reason: Dyspepsia Artificial Tears (Tears Naturale) 0 drop EA EYE PRN PRN PRN Reason: Dry Eyes Bisacodyl (Dulcolax) 10 mg [place] DAILYPRN PRN PRN Reason: Constipation Cholecalciferol (Vitamin D3) 1,000 units PO DAILY [facility] Last Admin: 03/29/18 09:31 Dose: 1,000 units Famotidine (Pepcid) 20 mg PO DAILY [facility] Last Admin: 03/29/18 09:31 Dose: 20 mg Fluoxetine HCl (Prozac) 20 mg PO DAILY [facility] Last Admin: 03/29/18 09:31 Dose: 20 mg Guaifenesin (Robitussin Sf) 200 mg PO Q4H PRN PRN Reason: Cough Labetalol HCl (Normodyne) 10 mg SLOW IVP Q2H PRN PRN Reason: SBP > 150 or DBP > 90 Last Admin: 03/25/18 17:00 Dose: 10 mg Levothyroxine Sodium (Synthroid) 50 mcg PO 0600 [facility] Last Admin: 03/29/18 05:16 Dose: 50 mcg Lisinopril (Zestril) 5 mg PO DAILY [facility] Last Admin: 03/29/18 09:30 Dose: 5 mg Loperamide HCl (Imodium) 2 mg PO PRN PRN PRN Reason: Diarrhea/Loose Stools Losartan Potassium (Cozaar) 25 mg PO DAILY [facility] Last Admin: 03/29/18 09:31 Dose: 25 mg Magnesium Hydroxide (Milk Of Magnesium) 30 ml PO BIDPRN PRN PRN Reason: Constipation Mineral Oil/White Petrolatum (Eucerin Cream) 0 gm TOP BIDPRN PRN PRN Reason: Dry Skin Morphine Sulfate (Morphine) 2 mg IV Q4H PRN PRN Reason: Pain Nitroglycerin (Nitrostat) 0.4 mg SL Q5MIN PRN PRN Reason: Chest Pain Ondansetron HCl (Zofran) 4 mg IVP BIDPRN PRN PRN Reason: Nausea/Vomiting Ondansetron HCl (Zofran Odt) 4 mg PO Q6H PRN PRN Reason: Nausea/Vomiting Phenol (Chloraseptic [place] 180 Ml Bot) 0 ml PO PRN PRN PRN Reason: Sore Throat Pravastatin Sodium (Pravachol) 20 mg PO [facility] Last Admin: 03/28/18 21:01 Dose: 20 mg Senna (Senokot) 2 tab PO HSPRN PRN PRN Reason: Constipation Sodium Chloride (Flush - Normal Saline) 10 ml IVF PRN PRN PRN Reason: Saline Flush Last Admin: 03/25/18 17:00 Dose: 10 ml Sodium Chloride ([place] Nasal [place] 0.65%) 0 ml EA NARE QIDPRN PRN PRN Reason: Nasal Congestion
--- NOTE | 2018-03-29 20:16 | PDOC.PN ---
- Subjective Encounter Start Date: 03/29/18 Encounter Start Time: 13:45 Subjective: pt up in bed no complains - Objective Vital Signs & Weight: Vital Signs (12 hours) Temp Pulse Pulse Pulse Resp BP BP 03/29/18 19:41 97.7 F 71 20 03/29/18 17:20 99.7 F H 77 20 03/29/18 13:50 68 67 182/76 H 03/29/18 09:30 65 118/50 L BP BP Pulse Ox 03/29/18 19:41 128/62 97 03/29/18 17:20 145/69 H 96 03/29/18 13:50 140/61 03/29/18 09:30 Weight Admit Weight 191 lb Weight 189 lb 6.033 oz Most Recent Monitor Data Heart Rate from ECG 67 NIBP 113/56 NIBP BP-Mean 75 Respiration from ECG 13 SpO2 100 I&O: 03/28/18 03/29/18 03/30/18 06:59 06:59 06:59 Intake Total 1611 1511 780 Output Total 1356 2007 665 Balance 255 -496 115 Result Diagrams: 03/29/18 03:47 03/29/18 03:47 Phys Exam - Physical Examination HEENT: PERRLA, moist MMs, sclera anicteric, TM's clear, oral pharynx no lesions , 2+ tonsils Neck: no nodes, no JVD, supple, full ROM Respiratory: no wheezing, no rales, no rhonchi, wheezing present, clear to auscultation bilateral Cardiovascular: RRR, no significant murmur, no rub, gallop, irregular Gastrointestinal: soft, non-tender, no distention, positive bowel sounds Musculoskeletal: no edema, pulses present, edema present Dx/Plan - Plan 1) Acute on chronic intracranial subdural hematoma 2) Demand ishemia 3) Acute encephalopathy 4) Dyslipidemia 5) htn 6) severe mitral regurgitation plan: s/p roel holes for subdural hematoma. will continue to monitor. will continue home meds. urine cx for 10,000-25,000 enterococcus will wait for sensitives. pt has no elevated wbc or fever. will hold off on abx. blood pressure stable for now. * . Review of Systems - Review of Systems ENT: negative: Ear Pain, Ear Discharge, Nose Pain, Nose Discharge, Nose Congestion, Mouth Pain, Mouth Swelling, Throat Pain, Throat Swelling, Other Respiratory: negative: Cough, Dry, Shortness of Breath, Hemoptysis, SOB with Excertion, Pleuritic Pain, Sputum, Wheezing Cardiovascular: negative: chest pain, palpitations, orthopnea, paroxysmal nocturnal dyspnea, edema, light headedness, other Gastrointestinal: negative: Nausea, Vomiting, Abdominal Pain, Diarrhea, Constipation, Melena, Hematochezia, Other Genitourinary: negative: Dysuria, Frequency, Incontinence, Hematuria, Retention , Other - Medications/Allergies Allergies/Adverse Reactions: Allergies Allergy/AdvReac Type Severity Reaction Status Date / Time celecoxib [From Celebrex] Allergy Verified 03/25/18 15:13 hydrochlorothiazide Allergy Verified 03/25/18 15:13 Penicillins Allergy Verified 03/02/18 00:36 simvastatin [From Zocor] Allergy Verified 03/25/18 15:13 Sulfa (Sulfonamide Allergy Verified 03/02/18 00:36 Antibiotics) Medications: Current Medications Acetaminophen (Tylenol) 650 mg PO Q6H PRN PRN Reason: Fever > 101 or Headache Al Hydroxide/Mg Hydroxide (Maalox) 30 ml PO QIDPRN PRN PRN Reason: Dyspepsia Artificial Tears (Tears Naturale) 0 drop EA EYE PRN PRN PRN Reason: Dry Eyes Bisacodyl (Dulcolax) 10 mg [place] DAILYPRN PRN PRN Reason: Constipation Cholecalciferol (Vitamin D3) 1,000 units PO DAILY [facility] Last Admin: 03/29/18 09:31 Dose: 1,000 units Famotidine (Pepcid) 20 mg PO DAILY [facility] Last Admin: 03/29/18 09:31 Dose: 20 mg Fluoxetine HCl (Prozac) 20 mg PO DAILY [facility] Last Admin: 03/29/18 09:31 Dose: 20 mg Guaifenesin (Robitussin Sf) 200 mg PO Q4H PRN PRN Reason: Cough Labetalol HCl (Normodyne) 10 mg SLOW IVP Q2H PRN PRN Reason: SBP > 150 or DBP > 90 Last Admin: 03/25/18 17:00 Dose: 10 mg Levothyroxine Sodium (Synthroid) 50 mcg PO 0600 [facility] Last Admin: 03/29/18 05:16 Dose: 50 mcg Lisinopril (Zestril) 5 mg PO DAILY [facility] Last Admin: 03/29/18 09:30 Dose: 5 mg Loperamide HCl (Imodium) 2 mg PO PRN PRN PRN Reason: Diarrhea/Loose Stools Losartan Potassium (Cozaar) 25 mg PO DAILY [facility] Last Admin: 03/29/18 09:31 Dose: 25 mg Magnesium Hydroxide (Milk Of Magnesium) 30 ml PO BIDPRN PRN PRN Reason: Constipation Mineral Oil/White Petrolatum (Eucerin Cream) 0 gm TOP BIDPRN PRN PRN Reason: Dry Skin Morphine Sulfate (Morphine) 2 mg IV Q4H PRN PRN Reason: Pain Nitroglycerin (Nitrostat) 0.4 mg SL Q5MIN PRN PRN Reason: Chest Pain Ondansetron HCl (Zofran) 4 mg IVP BIDPRN PRN PRN Reason: Nausea/Vomiting Ondansetron HCl (Zofran Odt) 4 mg PO Q6H PRN PRN Reason: Nausea/Vomiting Phenol (Chloraseptic [place] 180 Ml Bot) 0 ml PO PRN PRN PRN Reason: Sore Throat Pravastatin Sodium (Pravachol) 20 mg PO [facility] Last Admin: 03/28/18 21:01 Dose: 20 mg Senna (Senokot) 2 tab PO HSPRN PRN PRN Reason: Constipation Sodium Chloride (Flush - Normal Saline) 10 ml IVF PRN PRN PRN Reason: Saline Flush Last Admin: 03/25/18 17:00 Dose: 10 ml Sodium Chloride ([place] Nasal [place] 0.65%) 0 ml EA NARE QIDPRN PRN PRN Reason: Nasal Congestion
[2018-03-29] MEDS: Pravastatin Sodium 20 MG TAB PO SCH (22:06)
[2018-03-30 05:13] LABS: #Basophils 0.2 thou/uL (0.0-0.2); #Eosinphils 0.2 thou/uL (0.0-0.7); #Lymphocytes 0.7 thou/uL (1.20-3.40); #Monocytes 0.8 thou/uL (0.11-0.59); #Neutrophils 5.5 thou/uL (1.40-6.50); %Basophils 2.6 % (0.0-1.0); %Eosinophils 2.6 % (0.0-10.0); %Lymphocytes 9.9 % (21.0-51.0); %Monocytes 10.5 % (0.0-10.0); %Neutrophils 74.5 % (42.0-75.0); Hemoglobin 12.7 g/dL (14.0-18.0); Mean Corpuscular HGB CONC 32.6 g/dL (32.0-36.0); Mean Corpuscular Hemoglobin 29.7 pg (27.0-31.0); Mean Corpuscular Volume 91.1 fl (80.0-94.0); Mean Platelet Volume 8.7 fL (7.4-10.4); Platelet Count 107 thou/uL (130-400); RBC Distribution Width 12.7 % (11.5-14.5); Red Blood Cell (RBC) Count 4.28 mill/uL (4.70-6.10); White Blood Cell (WBC) Count 7.4 thou/uL (4.8-10.8)
[2018-03-30] MEDS: Levothyroxine Sodium 50 MCG TAB PO SCH (06:09)
[2018-03-30] MEDS: Famotidine 20 MG TAB PO SCH (09:21)
[2018-03-30] MEDS: Lisinopril 5 MG TAB PO SCH (09:21)
[2018-03-30] MEDS: FLUoxetine HCl 20 MG CAP PO SCH (09:22)
[2018-03-30] MEDS: Losartan 25 MG TAB PO SCH (09:22)
[2018-03-30] MEDS ORDERED: Metoprolol Tartrate 25 MG TAB PO SCH (10:13)
[2018-03-30] MEDS: Labetalol HCl 100 MG/20 ML VIAL SLOW IVP PRN (12:13)
[2018-03-30] MEDS ORDERED: Amlodipine 5 MG TAB PO SCH (13:30)
--- NOTE | 2018-03-30 14:54 | PDOC.PN ---
- Subjective Encounter Start Date: 03/30/18 Encounter Start Time: 10:00 Subjective: pt up in bed no complains - Objective Vital Signs & Weight: Vital Signs (12 hours) Temp Pulse Pulse Pulse Resp BP BP 03/30/18 14:05 65 130/64 03/30/18 13:27 03/30/18 12:13 66 177/79 H 03/30/18 12:00 98.9 F 66 16 03/30/18 09:21 70 161/72 H 03/30/18 09:20 99.5 F 66 20 03/30/18 08:47 77 78 155/56 H 03/30/18 07:55 99.5 F 70 20 03/30/18 03:54 98.3 F 60 18 BP BP Pulse Ox 03/30/18 14:05 03/30/18 13:27 128/59 L 03/30/18 12:13 03/30/18 12:00 171/71 H 96 03/30/18 09:21 03/30/18 09:20 95 03/30/18 08:47 166/61 H 03/30/18 07:55 186/87 H 95 03/30/18 03:54 153/81 H Weight Admit Weight 191 lb Weight 178 lb 9.6 oz Most Recent Monitor Data Heart Rate from ECG 67 NIBP 113/56 NIBP BP-Mean 75 Respiration from ECG 13 SpO2 100 I&O: 03/29/18 03/30/18 03/31/18 06:59 06:59 06:59 Intake Total 1511 780 Output Total 2006 665 Balance -496 115 Result Diagrams: 03/30/18 04:44 03/29/18 03:47 Phys Exam - Physical Examination right cranium saurabh intact Neck: no nodes, no JVD, supple, full ROM Respiratory: no wheezing, no rales, no rhonchi, wheezing present, clear to auscultation bilateral Cardiovascular: RRR, no significant murmur, no rub, gallop, irregular Gastrointestinal: soft, non-tender, no distention, positive bowel sounds Musculoskeletal: no edema, pulses present, edema present Neurological: non-focal, normal sensation, moves all 4 limbs Dx/Plan - Plan 1) Acute on chronic intracranial subdural hematoma 2) Demand ishemia 3) Acute encephalopathy 4) Dyslipidemia 5) htn 6) severe mitral regurgitation plan: s/p roel holes for subdural hematoma. will continue to monitor. will continue home meds. urine cx for 10,000-25,000 enterococcus will wait for sensitives. pt has no elevated wbc or fever. will hold off on abx. blood pressure stable for now. 03/30 will adjust pt's bp meds to keep systolic <150 pt will need snf. * . Review of Systems - Review of Systems Eyes: negative: Pain, Vision Change, Conjunctivae Inflammation, Eyelid Inflammation, Redness, Other ENT: negative: Ear Pain, Ear Discharge, Nose Pain, Nose Discharge, Nose Congestion, Mouth Pain, Mouth Swelling, Throat Pain, Throat Swelling, Other Respiratory: negative: Cough, Dry, Shortness of Breath, Hemoptysis, SOB with Excertion, Pleuritic Pain, Sputum, Wheezing Cardiovascular: negative: chest pain, palpitations, orthopnea, paroxysmal nocturnal dyspnea, edema, light headedness, other Gastrointestinal: negative: Nausea, Vomiting, Abdominal Pain, Diarrhea, Constipation, Melena, Hematochezia, Other - Medications/Allergies Allergies/Adverse Reactions: Allergies Allergy/AdvReac Type Severity Reaction Status Date / Time celecoxib [From Celebrex] Allergy Verified 03/25/18 15:13 hydrochlorothiazide Allergy Verified 03/25/18 15:13 Penicillins Allergy Verified 03/02/18 00:36 simvastatin [From Zocor] Allergy Verified 03/25/18 15:13 Sulfa (Sulfonamide Allergy Verified 03/02/18 00:36 Antibiotics) Medications: Current Medications Acetaminophen (Tylenol) 650 mg PO Q6H PRN PRN Reason: Fever > 101 or Headache Al Hydroxide/Mg Hydroxide (Maalox) 30 ml PO QIDPRN PRN PRN Reason: Dyspepsia Amlodipine Besylate (Norvasc) 5 mg PO DAILY [facility] Amlodipine Besylate (Norvasc) 5 mg PO NOW [facility] Stop: 03/30/18 15:30 Last Admin: 03/30/18 14:05 Dose: 5 mg Artificial Tears (Tears Naturale) 0 drop EA EYE PRN PRN PRN Reason: Dry Eyes Bisacodyl (Dulcolax) 10 mg MD DAILYPRN PRN PRN Reason: Constipation Cholecalciferol (Vitamin D3) 1,000 units PO DAILY [facility] Famotidine (Pepcid) 20 mg PO DAILY [facility] Last Admin: 03/30/18 09:21 Dose: 20 mg Fluoxetine HCl (Prozac) 20 mg PO DAILY [facility] Last Admin: 03/30/18 09:22 Dose: 20 mg Guaifenesin (Robitussin Sf) 200 mg PO Q4H PRN PRN Reason: Cough Iron/Minerals/Multivitamins (Theragran M) 1 tab PO DAILY [facility] Labetalol HCl (Normodyne) 10 mg SLOW IVP Q2H PRN PRN Reason: SBP > 150 or DBP > 90 Last Admin: 03/30/18 12:13 Dose: 10 mg Levothyroxine Sodium (Synthroid) 50 mcg PO 0600 [facility] Last Admin: 03/30/18 06:09 Dose: 50 mcg Lisinopril (Zestril) 5 mg PO BID [facility] Loperamide HCl (Imodium) 2 mg PO PRN PRN PRN Reason: Diarrhea/Loose Stools Magnesium Hydroxide (Milk Of Magnesium) 30 ml PO BIDPRN PRN PRN Reason: Constipation Metoprolol Tartrate (Lopressor) 25 mg PO BID [facility] Mineral Oil/White Petrolatum (Eucerin Cream) 0 gm TOP BIDPRN PRN PRN Reason: Dry Skin Morphine Sulfate (Morphine) 2 mg IV Q4H PRN PRN Reason: Pain Nitroglycerin (Nitrostat) 0.4 mg SL Q5MIN PRN PRN Reason: Chest Pain Ondansetron HCl (Zofran) 4 mg IVP BIDPRN PRN PRN Reason: Nausea/Vomiting Ondansetron HCl (Zofran Odt) 4 mg PO Q6H PRN PRN Reason: Nausea/Vomiting Phenol (Chloraseptic [place] 180 Ml Bot) 0 ml PO PRN PRN PRN Reason: Sore Throat Pravastatin Sodium (Pravachol) 20 mg PO HS [facility] Last Admin: 03/29/18 22:06 Dose: 20 mg Senna (Senokot) 2 tab PO HSPRN PRN PRN Reason: Constipation Sodium Chloride (Flush - Normal Saline) 10 ml IVF PRN PRN PRN Reason: Saline Flush Last Admin: 03/25/18 17:00 Dose: 10 ml Sodium Chloride ([place] Nasal [place] 0.65%) 0 ml EA NARE QIDPRN PRN PRN Reason: Nasal Congestion
--- NOTE | 2018-03-30 15:01 | PRG ---
DATE OF SERVICE: 03/30/2018 INPATIENT PROGRESS NOTE Mr. Johnson is now postoperative day #2 having undergone a right roel hole placement for evacuation of subdural hematoma. Patient states he is doing well today. He denies headache. He states he has bee n up walking with therapy. He is able to follow commands in all 4 extremities and is oriented to per son, place and time. We will continue to work with therapy for him and we will await final dispositi on, but he is improving well and is neurologically intact. Please call with any questions or changes in patient's neurologic status.
[2018-03-30] MEDS: Pravastatin Sodium 20 MG TAB PO SCH (20:37)
[2018-03-30] MEDS: Metoprolol Tartrate 25 MG TAB PO SCH (20:37)
[2018-03-30] MEDS ORDERED: Lisinopril 20 MG TAB PO SCH (21:00)
[2018-03-31] MEDS: Lisinopril 5 MG TAB PO SCH ×3 (05:44→21:42)
[2018-03-31] MEDS: Levothyroxine Sodium 50 MCG TAB PO SCH (05:44)
[2018-03-31 06:00] LABS: #Eosinphils 0.2 thou/uL (0.0-0.7); #Lymphocytes 1.1 thou/uL (1.20-3.40); #Monocytes 0.8 thou/uL (0.11-0.59); %Basophils 0.2 % (0.0-1.0); %Eosinophils 3.4 % (0.0-10.0); %Monocytes 11.7 % (0.0-10.0); %Neutrophils 69.8 % (42.0-75.0); Hemoglobin 12.9 g/dL (14.0-18.0); Mean Corpuscular Hemoglobin 29.9 pg (27.0-31.0); Mean Corpuscular Volume 90.8 fl (80.0-94.0); Mean Platelet Volume 8.8 fL (7.4-10.4); Platelet Count 117 thou/uL (130-400); RBC Distribution Width 12.5 % (11.5-14.5); White Blood Cell (WBC) Count 7.2 thou/uL (4.8-10.8)
[2018-03-31] MEDS: Furosemide 40 MG TAB PO SCH (08:36)
[2018-03-31] MEDS: Amlodipine 5 MG TAB PO SCH (09:05)
[2018-03-31] MEDS: Famotidine 20 MG TAB PO SCH (09:06)
[2018-03-31] MEDS: FLUoxetine HCl 20 MG CAP PO SCH (09:06)
[2018-03-31] MEDS: Metoprolol Tartrate 25 MG TAB PO SCH ×2 (09:06→21:43)
[2018-03-31] MEDS: Multivitamin W/ Minerals 1 TAB PO SCH (09:07)
--- NOTE | 2018-03-31 11:03 | PRG ---
DATE OF SERVICE: 03/31/2018 Mr. Johnson is hospital day 6 following roel hole evacuation for subdural hematoma. He is doing very w ell. His wounds are healing well. Neurologically, I detect no deficits. He has not yet mobilized a nd we will work on this in that regard. We will also obtain an ultrasound of the lower extremities g iven his relative immobility. We are working on disposition. He lives at home with his son.
--- NOTE | 2018-03-31 12:14 | ULT ---
BILATERAL LOWER EXTREMITY VENOUS DUPLEX SONOGRAM: Date: 03/31/18 HISTORY: Bilateral leg pain and edema. FINDINGS: Each common femoral vein and greater saphenous junction were evaluated along with each femoral, deep femoral, popliteal, and posterior tibial vein. There is good color and spectral Doppler flow, varsha taj, and augmentation. Oval fluid collection at the right popliteal fossa measures up to 2.7 cm. IMPRESSION: 1. No sonographic evidence of deep venous thrombosis within either lower extremity. 2. Probable Huff cyst right popliteal fossa. POS: SEVERIANO
--- NOTE | 2018-03-31 15:43 | PDOC.PN ---
- Subjective Encounter Start Date: 03/31/18 Encounter Start Time: 11:00 Pt seen for followup re: hypertension. Denies chest pain, shortness of breath, fevers or chills. - Objective MAR Reviewed: Yes Vital Signs & Weight: Vital Signs (12 hours) Temp Pulse Resp BP BP Pulse Ox 03/31/18 11:42 98.6 F 51 L 16 141/66 H 93 L 03/31/18 09:06 54 L 127/59 L 03/31/18 09:05 54 L 127/59 L 03/31/18 08:08 98.0 F 54 L 14 127/59 L 92 L 03/31/18 08:00 98.0 F 54 L 14 92 L 03/31/18 05:44 60 03/31/18 04:10 98.3 F 60 18 141/63 H 95 Weight Admit Weight 191 lb Weight 178 lb 8 oz Most Recent Monitor Data Heart Rate from ECG 67 NIBP 113/56 NIBP BP-Mean 75 Respiration from ECG 13 SpO2 100 I&O: 03/30/18 03/31/18 04/01/18 06:59 06:59 06:59 Intake Total 780 300 Output Total 665 350 Balance 115 -50 Result Diagrams: 03/31/18 05:30 03/29/18 03:47 EKG Reviewed by me: Yes (Tele: NSR) Phys Exam - Physical Examination Constitutional: NAD HEENT: moist MMs Neck: supple Respiratory: clear to auscultation bilateral Cardiovascular: RRR Gastrointestinal: soft Neurological: moves all 4 limbs Psychiatric: normal affect Skin: no rash Deviation from normal: [place] site clean Dx/Plan (1) Encephalopathy acute Code(s): G93.40 - ENCEPHALOPATHY, UNSPECIFIED Status: Acute Comment: Improving, likely due to intracranial bleed (2) Acute on chronic intracranial subdural hematoma Code(s): I62.01 - NONTRAUMATIC ACUTE SUBDURAL HEMORRHAGE; I62.03 - NONTRAUMATIC CHRONIC SUBDURAL HEMORRHAGE Status: Acute Comment: s/p roel hole and evacuation (3) Dyslipidemia Code(s): E78.5 - HYPERLIPIDEMIA, UNSPECIFIED Status: Chronic Comment: stable (4) H/O fall Code(s): Z91.81 - HISTORY OF FALLING Status: Chronic Comment: PT/OT eval/ treat (5) HTN (hypertension) Code(s): I10 - ESSENTIAL (PRIMARY) HYPERTENSION Status: Chronic Comment: Monitor vital signs, titrate antihypertensives as needed (6) H/O: CVA (cerebrovascular accident) Code(s): Z86.73 - PRSNL HX OF TIA (TIA), AND CEREB INFRC W/O RESID DEFICITS Status: Chronic - Plan * . Review of Systems - Review of Systems Respiratory: negative: Cough, Shortness of Breath, SOB with Excertion, Pleuritic Pain, Wheezing Cardiovascular: negative: chest pain, palpitations, orthopnea, paroxysmal nocturnal dyspnea, edema, light headedness Neurological: negative: Weakness, Numbness, Incoordination, Change in Speech, Confusion, Seizures - Medications/Allergies Allergies/Adverse Reactions: Allergies Allergy/AdvReac Type Severity Reaction Status Date / Time celecoxib [From Celebrex] Allergy Verified 03/25/18 15:13 hydrochlorothiazide Allergy Verified 03/25/18 15:13 Penicillins Allergy Verified 03/02/18 00:36 simvastatin [From Zocor] Allergy Verified 03/25/18 15:13 Sulfa (Sulfonamide Allergy Verified 03/02/18 00:36 Antibiotics) Medications: Current Medications Acetaminophen (Tylenol) 650 mg PO Q6H PRN PRN Reason: Fever > 101 or Headache Last Admin: 03/30/18 20:40 Dose: 650 mg Al Hydroxide/Mg Hydroxide (Maalox) 30 ml PO QIDPRN PRN PRN Reason: Dyspepsia Amlodipine Besylate (Norvasc) 5 mg PO DAILY [facility] Last Admin: 03/31/18 09:05 Dose: 5 mg Artificial Tears (Tears Naturale) 0 drop EA EYE PRN PRN PRN Reason: Dry Eyes Bisacodyl (Dulcolax) 10 mg [place] DAILYPRN PRN PRN Reason: Constipation Cholecalciferol (Vitamin D3) 1,000 units PO DAILY [facility] Last Admin: 03/31/18 09:06 Dose: 1,000 units Famotidine (Pepcid) 20 mg PO DAILY [facility] Last Admin: 03/31/18 09:06 Dose: 20 mg Fluoxetine HCl (Prozac) 20 mg PO DAILY [facility] Last Admin: 03/31/18 09:06 Dose: 20 mg Guaifenesin (Robitussin Sf) 200 mg PO Q4H PRN PRN Reason: Cough Iron/Minerals/Multivitamins (Theragran M) 1 tab PO DAILY [facility] Last Admin: 03/31/18 09:07 Dose: 1 tab Labetalol HCl (Normodyne) 10 mg SLOW IVP Q2H PRN PRN Reason: SBP > 150 or DBP > 90 Last Admin: 03/30/18 12:13 Dose: 10 mg Levothyroxine Sodium (Synthroid) 50 mcg PO 0600 [facility] Last Admin: 03/31/18 05:44 Dose: 50 mcg Lisinopril (Zestril) 5 mg PO BID [facility] Last Admin: 03/31/18 09:06 Dose: 5 mg Loperamide HCl (Imodium) 2 mg PO PRN PRN PRN Reason: Diarrhea/Loose Stools Magnesium Hydroxide (Milk Of Magnesium) 30 ml PO BIDPRN PRN PRN Reason: Constipation Metoprolol Tartrate (Lopressor) 25 mg PO BID [facility] Last Admin: 03/31/18 09:06 Dose: 25 mg Mineral Oil/White Petrolatum (Eucerin Cream) 0 gm TOP BIDPRN PRN PRN Reason: Dry Skin Morphine Sulfate (Morphine) 2 mg IV Q4H PRN PRN Reason: Pain Nitroglycerin (Nitrostat) 0.4 mg SL Q5MIN PRN PRN Reason: Chest Pain Ondansetron HCl (Zofran) 4 mg IVP BIDPRN PRN PRN Reason: Nausea/Vomiting Ondansetron HCl (Zofran Odt) 4 mg PO Q6H PRN PRN Reason: Nausea/Vomiting Phenol (Chloraseptic [place] 180 Ml Bot) 0 ml PO PRN PRN PRN Reason: Sore Throat Pravastatin Sodium (Pravachol) 20 mg PO HS [facility] Last Admin: 03/30/18 20:37 Dose: 20 mg Senna (Senokot) 2 tab PO HSPRN PRN PRN Reason: Constipation Sodium Chloride (Flush - Normal Saline) 10 ml IVF PRN PRN PRN Reason: Saline Flush Last Admin: 03/25/18 17:00 Dose: 10 ml Sodium Chloride ([place] Nasal [place] 0.65%) 0 ml EA NARE QIDPRN PRN PRN Reason: Nasal Congestion
[2018-03-31] MEDS: Pravastatin Sodium 20 MG TAB PO SCH (21:42)
[2018-04-01] MEDS: Levothyroxine Sodium 50 MCG TAB PO SCH (05:34)
[2018-04-01 06:06] LABS: #Eosinphils 0.2 thou/uL (0.0-0.7); #Lymphocytes 0.9 thou/uL (1.20-3.40); #Monocytes 0.8 thou/uL (0.11-0.59); #Neutrophils 4.5 thou/uL (1.40-6.50); %Basophils 0.1 % (0.0-1.0); %Eosinophils 2.5 % (0.0-10.0); %Monocytes 12.3 % (0.0-10.0); %Neutrophils 71.1 % (42.0-75.0); Hemoglobin 12.5 g/dL (14.0-18.0); Mean Corpuscular HGB CONC 33.1 g/dL (32.0-36.0); Mean Corpuscular Hemoglobin 29.8 pg (27.0-31.0); Mean Corpuscular Volume 90.1 fl (80.0-94.0); Mean Platelet Volume 9.1 fL (7.4-10.4); Platelet Count 116 thou/uL (130-400); RBC Distribution Width 12.2 % (11.5-14.5); White Blood Cell (WBC) Count 6.3 thou/uL (4.8-10.8)
[2018-04-01 08:10] VITALS: BMI 27.3
[2018-04-01] MEDS: FLUoxetine HCl 20 MG CAP PO SCH (08:39)
[2018-04-01] MEDS: Famotidine 20 MG TAB PO SCH (08:39)
[2018-04-01] MEDS: Amlodipine 5 MG TAB PO SCH (08:39)
[2018-04-01] MEDS: Lisinopril 5 MG TAB PO SCH (08:40)
[2018-04-01] MEDS: Multivitamin W/ Minerals 1 TAB PO SCH (08:40)
[2018-04-01] MEDS: Metoprolol Tartrate 25 MG TAB PO SCH (08:40)
--- NOTE | 2018-04-01 10:30 | PDOC.PN ---
- Subjective Encounter Start Date: 04/01/18 Encounter Start Time: 07:20 Pt seen for followup re: acute encephalopathy. Denies chest pain or shortness of breath, feels better today. - Objective MAR Reviewed: Yes Vital Signs & Weight: Vital Signs (12 hours) Temp Pulse Resp BP BP Pulse Ox 04/01/18 08:40 51 L 143/69 H 04/01/18 08:39 51 L 143/69 H 04/01/18 08:00 98.3 F 51 L 16 94 L 04/01/18 07:38 98.3 F 51 L 16 143/69 H 94 L 04/01/18 04:52 98.3 F 65 18 148/70 H 93 L 04/01/18 00:43 97.8 F 64 18 153/85 H 92 L Weight Admit Weight 191 lb Weight 180 lb Most Recent Monitor Data Heart Rate from ECG 67 NIBP 113/56 NIBP BP-Mean 75 Respiration from ECG 13 SpO2 100 I&O: 03/31/18 04/01/18 04/02/18 06:59 06:59 06:59 Intake Total 300 150 Output Total 350 50 225 Balance -50 -50 -75 Result Diagrams: 04/01/18 05:16 03/29/18 03:47 EKG Reviewed by me: Yes (Tele: NSR) Phys Exam - Physical Examination Constitutional: NAD HEENT: moist MMs Neck: supple Respiratory: clear to auscultation bilateral Cardiovascular: RRR Gastrointestinal: soft Neurological: moves all 4 limbs Psychiatric: normal affect Skin: no rash Dx/Plan (1) Encephalopathy acute Code(s): G93.40 - ENCEPHALOPATHY, UNSPECIFIED Status: Acute Comment: Improving (2) Acute on chronic intracranial subdural hematoma Code(s): I62.01 - NONTRAUMATIC ACUTE SUBDURAL HEMORRHAGE; I62.03 - NONTRAUMATIC CHRONIC SUBDURAL HEMORRHAGE Status: Acute Comment: s/p roel hole and evacuation, neurosurgery primary for this patient (3) Dyslipidemia Code(s): E78.5 - HYPERLIPIDEMIA, UNSPECIFIED Status: Chronic Comment: stable (4) H/O fall Code(s): Z91.81 - HISTORY OF FALLING Status: Chronic Comment: PT/OT eval/ treat (5) HTN (hypertension) Code(s): I10 - ESSENTIAL (PRIMARY) HYPERTENSION Status: Chronic Comment: titrate antihypertensives as needed (6) H/O: CVA (cerebrovascular accident) Code(s): Z86.73 - PRSNL HX OF TIA (TIA), AND CEREB INFRC W/O RESID DEFICITS Status: Chronic - Plan * . Review of Systems - Review of Systems Cardiovascular: negative: chest pain, palpitations, orthopnea, paroxysmal nocturnal dyspnea, edema, light headedness Gastrointestinal: negative: Nausea, Vomiting, Abdominal Pain, Diarrhea, Constipation, Melena, Hematochezia - Medications/Allergies Allergies/Adverse Reactions: Allergies Allergy/AdvReac Type Severity Reaction Status Date / Time celecoxib [From Celebrex] Allergy Verified 03/25/18 15:13 hydrochlorothiazide Allergy Verified 03/25/18 15:13 Penicillins Allergy Verified 03/02/18 00:36 simvastatin [From Zocor] Allergy Verified 03/25/18 15:13 Sulfa (Sulfonamide Allergy Verified 03/02/18 00:36 Antibiotics) Medications: Current Medications Acetaminophen (Tylenol) 650 mg PO Q6H PRN PRN Reason: Fever > 101 or Headache Last Admin: 03/30/18 20:40 Dose: 650 mg Al Hydroxide/Mg Hydroxide (Maalox) 30 ml PO QIDPRN PRN PRN Reason: Dyspepsia Amlodipine Besylate (Norvasc) 5 mg PO DAILY [facility] Last Admin: 04/01/18 08:39 Dose: 5 mg Artificial Tears (Tears Naturale) 0 drop EA EYE PRN PRN PRN Reason: Dry Eyes Bisacodyl (Dulcolax) 10 mg [place] DAILYPRN PRN PRN Reason: Constipation Cholecalciferol (Vitamin D3) 1,000 units PO DAILY [facility] Last Admin: 04/01/18 08:39 Dose: 1,000 units Famotidine (Pepcid) 20 mg PO DAILY [facility] Last Admin: 04/01/18 08:39 Dose: 20 mg Fluoxetine HCl (Prozac) 20 mg PO DAILY [facility] Last Admin: 04/01/18 08:39 Dose: 20 mg Guaifenesin (Robitussin Sf) 200 mg PO Q4H PRN PRN Reason: Cough Iron/Minerals/Multivitamins (Theragran M) 1 tab PO DAILY [facility] Last Admin: 04/01/18 08:40 Dose: 1 tab Labetalol HCl (Normodyne) 10 mg SLOW IVP Q2H PRN PRN Reason: SBP > 150 or DBP > 90 Last Admin: 03/30/18 12:13 Dose: 10 mg Levothyroxine Sodium (Synthroid) 50 mcg PO 0600 [facility] Last Admin: 04/01/18 05:34 Dose: 50 mcg Lisinopril (Zestril) 5 mg PO BID [facility] Last Admin: 04/01/18 08:40 Dose: 5 mg Loperamide HCl (Imodium) 2 mg PO PRN PRN PRN Reason: Diarrhea/Loose Stools Magnesium Hydroxide (Milk Of Magnesium) 30 ml PO BIDPRN PRN PRN Reason: Constipation Metoprolol Tartrate (Lopressor) 25 mg PO BID [facility] Last Admin: 04/01/18 08:40 Dose: 25 mg Mineral Oil/White Petrolatum (Eucerin Cream) 0 gm TOP BIDPRN PRN PRN Reason: Dry Skin Morphine Sulfate (Morphine) 2 mg IV Q4H PRN PRN Reason: Pain Nitroglycerin (Nitrostat) 0.4 mg SL Q5MIN PRN PRN Reason: Chest Pain Ondansetron HCl (Zofran) 4 mg IVP BIDPRN PRN PRN Reason: Nausea/Vomiting Ondansetron HCl (Zofran Odt) 4 mg PO Q6H PRN PRN Reason: Nausea/Vomiting Phenol (Chloraseptic [place] 180 Ml Bot) 0 ml PO PRN PRN PRN Reason: Sore Throat Pravastatin Sodium (Pravachol) 20 mg PO HS [facility] Last Admin: 03/31/18 21:42 Dose: 20 mg Senna (Senokot) 2 tab PO HSPRN PRN PRN Reason: Constipation Sodium Chloride (Flush - Normal Saline) 10 ml IVF PRN PRN PRN Reason: Saline Flush Last Admin: 03/25/18 17:00 Dose: 10 ml Sodium Chloride ([place] Nasal [place] 0.65%) 0 ml EA NARE QIDPRN PRN PRN Reason: Nasal Congestion
[2018-04-01 16:15] VITALS: BP 115/56; TEMP 98.5
--- NOTE | 2018-04-02 13:37 | DIS ---
ATTENDING PHYSICIAN: Dr. Milo Stanton DATE OF ADMISSION: 03/25/2018 DATE OF DISCHARGE: 04/01/2018 HOSPITAL COURSE: The patient is an 88-year-old male with past medical history of hypertens ion, hyperlipidemia and prior CVA who was seen in the hospital on 03/02/2018 for subacute right subdu ral hematoma. At that time, conservative management was elected by El [place] and Dr. Anderson. The bassem gastelum was discharged to a rehab facility. He reports he was doing well until one week prior to this recent admission when he began having increasing weakness to his lower extremities and some intermitt ent confusion noted by his son. He was brought to the ER and evaluated with a repeat CT head, which showed a large right-sided acute on chronic subdural hematoma. The patient did report that upon disc harge from the rehab facility he had resumed his aspirin therapy at home. He was previously on Plavi x, but no longer taking that medication. He was admitted for further management and underwent roel h ole x2 on 03/27/2018. Repeat CT showed significant reduction in subdural size. The patient remained neuro intact throughout his stay. He continued to have some unsteadiness on his feet as noted on ad mission and was discharged to [facility] facility. We will plan to follow up with the patient i n approximately 4 weeks with repeat head CT. He should stay off any anticoagulants and indefinitely. Please reach out to Neurosurgery for additional questions or concerns.
== END 2018-04-01 17:35 | DRG 25 ==
LOC: ERS 10:24 → CCU 14:44 → 2SE 03-29 12:05
PROVIDERS: ADMIT Neurological Surgery; ATTEND Neurological Surgery
PROC: 009430Z Drainage of Intracranial Subdural Space with Drainage Device, Percutaneous Approach (ICD-10-PCS; principal; 2018-03-27)
DX: I62.01 Nontraumatic acute subdural hemorrhage (principal); G93.40 Encephalopathy, unspecified; G93.5 Compression of brain; I24.8 Other forms of acute ischemic heart disease; I42.9 Cardiomyopathy, unspecified; I69.351 Hemiplegia and hemiparesis following cerebral infarction affecting right dominant side; I62.03 Nontraumatic chronic subdural hemorrhage; E78.5 Hyperlipidemia, unspecified; Z91.81 History of falling; I10 Essential (primary) hypertension; I34.0 Nonrheumatic mitral (valve) insufficiency; E03.9 Hypothyroidism, unspecified; D69.6 Thrombocytopenia, unspecified; I25.2 Old myocardial infarction; M19.90 Unspecified osteoarthritis, unspecified site; M06.9 Rheumatoid arthritis, unspecified; F41.9 Anxiety disorder, unspecified; F32.9 Major depressive disorder, single episode, unspecified
CPT/HCPCS: 36415; 70450; 71045; 80048; 80053; 81003; 81015; 82553; 83735; 83880; 84443; 84484; 85007; 85025; 85027; 85610; 85730; 87077; 87086; 93005; 93970; A4216; G8978-GP-CL; G8979-GP-CJ; G8987-GO-CK; G8988-GO-CI; G8996-GN-CH; G8997-GN-CH; J2001; J2550; J2704; J3010; J3490; J7050

== ENCOUNTER 2018-04-30 12:46 | Outpatient (CLI) | payer MEDICARE ==
--- NOTE | 2018-04-30 13:57 | CT ---
CT BRAIN WITHOUT CONTRAST ENHANCEMENT: HISTORY: Followup of subdural hematoma. COMPARISON: 03/28/2018 FINDINGS: There is generalized ventricular and sulcal prominence. There is a decreasing size to the right-side d subdural fluid collection, which is also now almost entirely low attenuation. No acute blood eleme nts are seen. There is no longer effacement to the right lateral ventricle, and there is no signific ant shift of midline structures. IMPRESSION: Resolving right subdural fluid collection. POS: SEVERIANO
== END 2018-04-30 12:47 | disposition home or self-care (01) ==
LOC: TBSIIMAG 12:46
PROVIDERS: ATTEND Neurological Surgery
DX: S06.5X9D Traumatic subdural hemorrhage with loss of consciousness of unspecified duration, subsequent encounter (principal)
CPT/HCPCS: 70450